=== PATIENT | male | born 1955 | race Caucasian/White ===

== ENCOUNTER 2017-01-08 11:19 | Inpatient (IN) | payer BC, OTHER ==
[2017-01-08 12:58] VITALS: BMI 27.9
--- NOTE | 2017-01-08 14:37 | HP ---
CIWA Score - CIWA Score Nausea/Vomitin-No Nausea/No Vomiting Muscle Tremors: 4-Moderate,w/Arms Extend Anxiety: 3 Agitation: 4-Moderately Restless Paroxysmal Sweats: 3 Orientation: 0-Oriented Tacttile Disturbances: 0-None Auditory Disturbances: 0-None Visual Disturbances: 0-None Headache: 0-None Present CIWA-Ar Total Score: 14 Admission ROS BHS - HPI Chief Complaint: I know I have a problem and need detox. Allergies/Adverse Reactions: Allergies Allergy/AdvReac Type Severity Reaction Status Date / Time No Known Allergies Allergy Verified 01/08/17 14:30 History of Present Illness: pt is a 61yr old male with a history of alcohol dependence seeking detox for treatment. Pt received tx at [facility] ED on 12/31/16 for muscular pain to his left upper chest. cardiac issues.was ruled out. Diagnosis was muscular. Exam Limitations: No Limitations - Ebola screening Have you traveled outside of the country in the last 21 days: No Have you had contact with anyone from an Ebola affected area: No Have you been sick,other than usual withdrawal symptoms: No Do you have a fever: No - Review of Systems Constitutional: Night Sweats, Changes in sleep EENT: reports: Tearing, Nose Congestion Respiratory: reports: Cough Cardiac: reports: Syncope GI: reports: Poor Appetite, Poor Fluid Intake : reports: No Symptoms Reported Musculoskeletal: reports: Joint Pain (right shoulder pain), Muscle Pain (left upper chest wall area.) Integumentary: reports: Flushing, Sweating Neuro: reports: Tingling, Tremors Endocrine: reports: Excessive Sweating, Flushing, Intolerance to Cold, Intolerance to Heat Hematology: reports: No Symptoms Reported, Anemia (h/o anemia in the past. not taking any iron supplement) Psychiatric: reports: Judgement Intact, Mood/Affect Appropiate, Orientated x3, Agitated, Anxious Other Systems: Reviewed and Negative Patient History - Patient Medical History Hx Anemia: Yes (in the past ) Hx Asthma: No Hx Chronic Obstructive Pulmonary Disease (COPD): No Hx Cancer: No Hx Cardiac Disorders: No Hx Congestive Heart Failure: No Hx Hypertension: No Hx Hypercholesterolemia: No Hx Pacemaker: No HX Cerebrovascular Accident: No Hx Seizures: No Hx Dementia: No Hx Diabetes: No Hx Gastrointestinal Disorders: No Hx Liver Disease: No Hx Genitourinary Disorders: No Hx Sexually Transmitted Disorders: No (clymadia/gonerrhea in the past ) Hx Renal Disease (ESRD): No Hx Thyroid Disease: No Hx Human Immunodeficiency Virus (HIV): No (negative) Hx Hepatitis C: No (negative) Hx Depression: No Hx Suicide Attempt: No (denies) Hx Bipolar Disorder: No Hx Schizophrenia: No - Patient Surgical History Hx Orthopedic Surgery: Yes (rt total hip replacement 2000) - PPD History Previous Implant?: Yes Documented Results: Negative w/o proof PPD to be Administered?: Yes - Reproductive History Patient is a Female of Child Bearing Age (11 -55 yrs old): No - Smoking Cessation Smoking history: Current every day smoker Have you smoked in the past 12 months: Yes Aproximately how many cigarettes per day: 2 Hx Chewing Tobacco Use: Yes Initiated information on smoking cessation: Yes 'Breaking Loose' booklet given: 01/08/17 - Substance & Tx. History Hx Alcohol Use: Yes Hx Substance Use: No Substance Use Type: Alcohol Hx Substance Use Treatment: No (never in detox) - Substances Abused Alcohol Route: Oral Frequency: Daily Amount used: 1 six pack beer/1 pint congac /1 pint rum Age of first use: 16 Date of Last Use: 01/08/17 Family Disease History - Family Disease History Family Disease History: Diabetes: Father, [place]: Brother (leukemia) Admission Physical Exam S - Vital Signs Vital Signs: Vital Signs - 24 hr 01/08/17 12:44 Temperature 97 F L Pulse Rate 97 H Respiratory 20 Rate Blood Pressure 117/66 - Physical General Appearance: Yes: Appropriately Dressed, Moderate Distress, Tremorous, Irritable, Sweating, Anxious HEENTM: Yes: Hearing grossly Normal, Normal Voice, Nasal Congestion, Rhinorrhea Respiratory: Yes: Lungs Clear, Normal Breath Sounds, No Respiratory Distress Neck: Yes: No masses,lesions,Nodules Breast: Yes: Within Normal Limits Cardiology: Yes: Regular Rhythm, Regular Rate, S1, S2 Abdominal: Yes: Normal Bowel Sounds, Non Tender, Soft Genitourinary: Yes: Within Normal Limits Back: Yes: Normal Inspection Musculoskeletal: Yes: full range of Motion, Muscle Pain (left upper chest area) Extremities: Yes: Normal Capillary Refill, Normal Inspection, Non-Tender, Tremors Neurological: Yes: Fully Oriented, Alert, Normal Response Integumentary: Yes: Normal Color, Diaphoresis Lymphatic: Yes: Within Normal Limits - Diagnostic (1) Alcohol dependence with uncomplicated withdrawal Current Visit: Yes Status: Chronic (2) Nicotine dependence Current Visit: Yes Status: Chronic Qualifiers: Nicotine product type: cigarettes Substance use status: uncomplicated Qualified Code(s): F17.210 - Nicotine dependence, cigarettes, uncomplicated (3) Hypertension Current Visit: Yes Status: Chronic Qualifiers: Hypertension type: essential hypertension Qualified Code(s): I10 - Essential (primary) hypertension (4) Chest wall muscle strain Current Visit: Yes Status: Acute Qualifiers: Encounter type: initial encounter Qualified Code(s): S29.011A - Strain of muscle and tendon of front wall of thorax, initial encounter Comment: tx received at [facility] 12/31/16 no cardia issue; pt diagnosed with muscular strain Cleared for Admission S - Detox or Rehab [facility] Level of Care: Medically Managed Detox Regimen/Protocol: Librium S Breath Alcohol Content Breath Alcohol Content: 0.204 Urine Drug Screen - Results Drug Screen Negative: No Urine Drug Screen Results: BZO-Benzodiazepines
[2017-01-08] MEDS ORDERED: P-EPHED 60MG/TRIPROLIDI 2.5MG TABLET PO PRN (15:05)
[2017-01-08] MEDS ORDERED: chlordiazePOXIDE HCL 25 MG CAPSULE PO PRN (15:05)
[2017-01-08] MEDS ORDERED: ACETAMINOPHEN 325 MG TABLET (FP) PO PRN (15:05)
[2017-01-08] MEDS ORDERED: guaiFENesin/D-METHORPHAN HB 10 ML UNIT-DOSE CUPS PO PRN (15:05)
[2017-01-08] MEDS ORDERED: MAGNESIUM CITRATE 300 ML BOTTLE PO PRN (15:05)
[2017-01-08] MEDS ORDERED: LOPERAMIDE HCL 2 MG CAPSULE PO PRN (15:05)
[2017-01-08] MEDS ORDERED: hydrOXYzine PAMOATE 50 MG CAPSULE (FP) PO PRN (15:05)
[2017-01-08] MEDS ORDERED: chlordiazePOXIDE HCL 25 MG CAPSULE PO ONE (15:05)
[2017-01-08] MEDS ORDERED: MENTHOL/PHENOL 1 EACH UD MM PRN (15:05)
[2017-01-08] MEDS ORDERED: NICOTINE POLACRILEX 4 MG GUM BC PRN (15:05)
[2017-01-08] MEDS ORDERED: MAG HYDROX/AL HYDROX/SIMETH 30 ML UNIT-DOSE CUP PO PRN (15:05)
[2017-01-08] MEDS ORDERED: MAGNESIUM HYDROX 2400MG/30ML ORAL SUSPENSION 30 ML CUP PO PRN (15:05)
[2017-01-08 17:21] LABS: MCHC 34.6 g/dl (32.0-35.9); MEAN CELL VOLUME 104.1 fl (80-96); MEAN PLT VOLUME 11.2 fl (7.5-11.1); PLATELET COUNT 48 K/MM3 (134-434); RDW 17.5 % (11.9-15.9)
[2017-01-08 17:27] LABS: ALBUMIN 2.1 g/dl (3.4-5.0); BILIRUBIN,TOTAL 2.8 mg/dL (0.2-1.0); SGOT/AST 105 U/L (15-37); SGPT/ALT 42 U/L (12-78)
[2017-01-08 17:30] LABS: ALK PHOS 311 U/L (45-117); ANION GAP 9 (8-16); CALCIUM 8.3 mg/dL (8.5-10.1); CO2 23 mmol/L (21-32); CREATININE 0.8 mg/dL (0.7-1.3); GLUCOSE,RANDOM 164 mg/dL (74-106); TOT PROT 7.2 g/dl (6.4-8.2)
[2017-01-08] MEDS: chlordiazePOXIDE HCL 25 MG CAPSULE PO SCH ×2 (18:11→22:33)
[2017-01-08] MEDS: THIAMINE HCL 100 MG TABLET (FP) PO SCH (22:33)
[2017-01-08] MEDS: diphenhydrAMINE HCL 50 MG CAPSULE PO PRN (22:33)
[2017-01-08 23:23] LABS: MACROCYTOSIS 1+; PLATELET COMMENT2 NO CLOTTING DETECTED; PLATELET COMMENT3 NO CLUMPING NOTED; PLATELET ESTIMATE DECREASED
[2017-01-08 23:24] LABS: ANISOCYTOSIS 1+
[2017-01-09 00:11] LABS: URINE APPEARANCE CLEAR; URINE BILIRUBIN NEGATIVE (NEGATIVE); URINE BLOOD NEGATIVE (NEGATIVE); URINE COLOR STRAW; URINE GLUCOSE (UA) NEGATIVE (NEGATIVE); URINE KETONE NEGATIVE (NEGATIVE); URINE LEUK ESTERASE NEGATIVE (NEGATIVE); URINE NITRITE NEGATIVE (NEGATIVE); URINE PROTEIN NEGATIVE (NEGATIVE); URINE UROBILINOGEN NEGATIVE mg/dL (0.2-1.0)
[2017-01-09] MEDS: chlordiazePOXIDE HCL 25 MG CAPSULE PO SCH ×4 (05:31→22:18)
[2017-01-09 09:34] LABS: HIV 1 & 2 AB NEGATIVE; HIV 1 AGp24 NEGATIVE
--- NOTE | 2017-01-09 10:31 | EKG ---
Test Reason : Blood Pressure : / mmHG Vent. Rate : 073 BPM Atrial Rate : 073 BPM P-R Int : 160 ms QRS Dur : 092 ms QT Int : 414 ms P-R-T Axes : 057 015 036 degrees QTc Int : 456 ms NORMAL SINUS RHYTHM NORMAL ECG NO PREVIOUS ECGS AVAILABLE Confirmed by AGATA SOLER MD ([id number]) on 01/09/2017 10:31:21 AM Referred By: Confirmed By:AGATA SOLER MD
[2017-01-09] MEDS: PRENATAL VITAMINS W/ FOLIC ACID TABLET (FP) PO SCH (10:57)
[2017-01-09] MEDS: METOPROLOL SUCCINATE 100 MG TAB.SR.24H (FP) PO SCH (10:57)
[2017-01-09] MEDS: NICOTINE 7 MG/24 HOURS TOPICAL PATCH TD SCH (11:00)
--- NOTE | 2017-01-09 11:24 | PN ---
S CIWA - CIWA Score Nausea/Vomitin-No Nausea/No Vomiting Muscle Tremors: 4-Moderate,w/Arms Extend Anxiety: 3 Agitation: 4-Moderately Restless Paroxysmal Sweats: 3 Orientation: 0-Oriented Tacttile Disturbances: 0-None Auditory Disturbances: 0-None Visual Disturbances: 0-None Headache: 0-None Present CIWA-Ar Total Score: 14 BHS Progress Note (SOAP) Subjective: sweats tired agitation interrupted sleep body aches Objective: 01/09/17 11:23 Vital Signs Temperature 98.1 F 01/09/17 10:00 Pulse Rate 88 01/09/17 10:00 Respiratory Rate 18 01/09/17 10:00 Blood Pressure 135/73 01/09/17 10:00 O2 Sat by Pulse Oximetry (%) Laboratory Tests 01/08/17 01/08/17 01/08/17 14:00 14:00 14:00 WBC 4.0 RBC 2.84 L Hgb 10.2 L Hct 29.5 L MCV 104.1 H MCH 36.0 H MCHC 34.6 RDW 17.5 H Plt Count 48 L MPV 11.2 H Platelet Estimate Decreased Platelet Comment No clotting detected Anisocytosis 1+ Macrocytosis 1+ Sodium Potassium Chloride Carbon Dioxide Anion Gap BUN Creatinine Creat Clearance w eGFR Random Glucose Calcium Total Bilirubin AST ALT Alkaline Phosphatase Total Protein Albumin Urine Color Urine Appearance Urine pH Urine Protein Urine Glucose (UA) Urine Ketones Urine Blood Urine Nitrite Urine Bilirubin Urine Urobilinogen Ur Leukocyte Esterase RPR Titer Nonreactive HIV 1&2 Antibody Screen Negative HIV P24 Antigen Negative 01/08/17 01/08/17 14:00 23:56 WBC RBC Hgb Hct MCV MCH MCHC RDW Plt Count MPV Platelet Estimate Platelet Comment Anisocytosis Macrocytosis Sodium 144 Potassium 4.4 Chloride 112 H Carbon Dioxide 23 Anion Gap 9 BUN 10 Creatinine 0.8 Creat Clearance w eGFR > 60 Random Glucose 164 H Calcium 8.3 L Total Bilirubin 2.8 H AST 105 H ALT 42 Alkaline Phosphatase 311 H Total Protein 7.2 Albumin 2.1 L Urine Color Straw Urine Appearance Clear Urine pH 6.0 Urine Protein Negative Urine Glucose (UA) Negative Urine Ketones Negative Urine Blood Negative Urine Nitrite Negative Urine Bilirubin Negative Urine Urobilinogen Negative Ur Leukocyte Esterase Negative RPR Titer HIV 1&2 Antibody Screen HIV P24 Antigen low H:H; iron supplement ordered awake/alert ambulating no acute distress Assessment: 01/09/17 11:23 withdrawal sx Plan: continue detox increase fluids iron supplement ordered repeat labs for thursday.
[2017-01-09] MEDS: FERROUS SO4 325 MG TABLET (FP) PO SCH ×2 (13:00→18:35)
--- NOTE | 2017-01-09 14:08 | CONSULT ---
[facility] Psychiatric Consult - Data Date of interview: 01/09/17 Admission source: [facility] Identifying data: First admission to [facility] for this 61 y/o male seeking detox treatment on for alcohol and marihuana dependence.Patient is in a long standing common-law relationship,father of seven,domiciled and currently retired (supported on his pension benefits). Substance Abuse History: Discussed with patient in this interview.Mr Price declares that this report is accurate about his addictions. Smoking Cessation. Smoking history: Current every day smoker. Have you smoked in the past 12 months: Yes. Aproximately how many cigarettes per day: 2. Hx Chewing Tobacco Use: Yes. Initiated information on smoking cessation: Yes. 'Breaking Loose' booklet given: 01/08/17. - Substance & Tx. History. Hx Alcohol Use: Yes. Hx Substance Use: No. Substance Use Type: Alcohol. Hx Substance Use Treatment: No (never in detox). - Substances Abused. Alcohol. Route: Oral. Frequency : Daily. Amount used: 1 six pack beer/1 pint congac /1 pint rum. Age of first use: 16. Date of Last Use: 01/08/17 Medical History: Remarkable for hepatitis C,history of anemia,past treatment for chlamydia/gonorrhea and total right hip replacement (2000). Psychiatric History: Patient denies. Physical/Sexual Abuse/Trauma History: Patient denies. Additional Comment: Urine Drug Screen Results: BZO-Benzodiazepines.Noted. Mental Status Exam - Mental Status Exam Alert and Oriented to: Time, Place, Person Cognitive Function: Good Patient Appearance: Well Groomed Mood: Nervous, Withdrawn, Anxious Affect: Mood Congruent Patient Behavior: Fatigued, Appropriate, Cooperative Speech Pattern: Clear, Appropriate Voice Loudness: Normal Thought Process: Intact, Goal Oriented Thought Disorder: Not Present Hallucinations: Denies Suicidal Ideation: Denies Homicidal Ideation: Denies Insight/Judgement: Poor Sleep: Poorly, Difficulty falling asleep Appetite: Good Muscle strength/Tone: Normal Gait/Station: Normal Psychiatric Findings - Problem List ([place] 1, 2,3) (1) Alcohol dependence with uncomplicated withdrawal Current Visit: Yes Status: Acute (2) Nicotine dependence Current Visit: Yes Status: Acute Qualifiers: Nicotine product type: cigarettes Substance use status: uncomplicated Qualified Code(s): F17.210 - Nicotine dependence, cigarettes, uncomplicated (3) Chest wall muscle strain Current Visit: Yes Status: Acute Qualifiers: Encounter type: initial encounter Qualified Code(s): S29.011A - Strain of muscle and tendon of front wall of thorax, initial encounter Comment: tx received at [facility] 12/31/16 no cardia issue; pt diagnosed with muscular strain (4) Hypertension Current Visit: Yes Status: Chronic Qualifiers: Hypertension type: essential hypertension Qualified Code(s): I10 - Essential (primary) hypertension (5) Insomnia Current Visit: Yes Status: Acute - Initial Treatment Plan Initial Treatment Plan: Psychoeducation.Detoxification.Ambien 5 mg po hs prn.Patient is made aware of potential for parasomnias.He is in agreement with this careplan.Observation.
[2017-01-09] MEDS: ZOLPIDEM TARTRATE 5 MG TABLET PO PRN (22:18)
[2017-01-09] MEDS: THIAMINE HCL 100 MG TABLET (FP) PO SCH (22:18)
[2017-01-10] MEDS: chlordiazePOXIDE HCL 25 MG CAPSULE PO SCH ×2 (05:48→10:11)
[2017-01-10] MEDS: FERROUS SO4 325 MG TABLET (FP) PO SCH ×3 (07:37→17:55)
[2017-01-10] MEDS: NICOTINE 7 MG/24 HOURS TOPICAL PATCH TD SCH (10:11)
[2017-01-10] MEDS: PRENATAL VITAMINS W/ FOLIC ACID TABLET (FP) PO SCH (10:11)
[2017-01-10] MEDS: METOPROLOL SUCCINATE 100 MG TAB.SR.24H (FP) PO SCH (10:11)
--- NOTE | 2017-01-10 13:51 | PN ---
[facility] CIWA - CIWA Score Nausea/Vomitin Muscle Tremors: 3 Anxiety: 3 Agitation: 2 Paroxysmal Sweats: 1-Minimal Palms Moist Orientation: 0-Oriented Tacttile Disturbances: 1-Very Mild Itch/Numbness Auditory Disturbances: 1-Very Mild Visual Disturbances: 1-Very Mild Sensitivity Headache: 2-Mild CIWA-Ar Total Score: 17 S Progress Note (SOAP) Subjective: alert,irritable,anxious,interrupted sleep,tremor Objective: 01/10/17 13:49 Vital Signs Temperature 98.1 F 01/10/17 09:56 Pulse Rate 90 01/10/17 09:56 Respiratory Rate 16 01/10/17 09:56 Blood Pressure 117/79 01/10/17 09:56 O2 Sat by Pulse Oximetry (%) ekg nsr,normal ecg 01/10/17 13:50 Laboratory Last Values WBC 4.0 K/mm3 (4.0-10.0) 01/08/17 14:00 RBC 2.84 M/mm3 (4.00-5.60) L 01/08/17 14:00 Hgb 10.2 GM/dL (11.7-16.9) L 01/08/17 14:00 Hct 29.5 % (35.4-49) L 01/08/17 14:00 MCV 104.1 fl (80-96) H 01/08/17 14:00 MCH 36.0 pg (25.7-33.7) H 01/08/17 14:00 MCHC 34.6 g/dl (32.0-35.9) 01/08/17 14:00 RDW 17.5 % (11.9-15.9) H 01/08/17 14:00 Plt Count 48 K/MM3 (134-434) L 01/08/17 14:00 MPV 11.2 fl (7.5-11.1) H 01/08/17 14:00 Platelet Estimate Decreased 01/08/17 14:00 Platelet Comment Few large plts 01/08/17 14:00 Platelet Comment No clotting detected 01/08/17 14:00 Anisocytosis 1+ 01/08/17 14:00 Macrocytosis 1+ 01/08/17 14:00 Sodium 144 mmol/L (136-145) 01/08/17 14:00 Potassium 4.4 mmol/L (3.5-5.1) 01/08/17 14:00 Chloride 112 mmol/L (98-107) H 01/08/17 14:00 Carbon Dioxide 23 mmol/L (21-32) 01/08/17 14:00 Anion Gap 9 (8-16) 01/08/17 14:00 BUN 10 mg/dL (7-18) 01/08/17 14:00 Creatinine 0.8 mg/dL (0.7-1.3) 01/08/17 14:00 Creat Clearance w eGFR > 60 (>60) 01/08/17 14:00 Random Glucose 164 mg/dL (74-106) H 01/08/17 14:00 Calcium 8.3 mg/dL (8.5-10.1) L 01/08/17 14:00 Total Bilirubin 2.8 mg/dL (0.2-1.0) H 01/08/17 14:00 AST 105 U/L (15-37) H 01/08/17 14:00 ALT 42 U/L (12-78) 01/08/17 14:00 Alkaline Phosphatase 311 U/L (45-117) H 01/08/17 14:00 Total Protein 7.2 g/dl (6.4-8.2) 01/08/17 14:00 Albumin 2.1 g/dl (3.4-5.0) L 01/08/17 14:00 Urine Color Straw 01/08/17 23:56 Urine Appearance Clear 01/08/17 23:56 Urine pH 6.0 (5.0-8.0) 01/08/17 23:56 Ur Specific [place] <= 1.005 (1.005-1.025) 01/08/17 23:56 Urine Protein Negative (NEGATIVE) 01/08/17 23:56 Urine Glucose (UA) Negative (NEGATIVE) 01/08/17 23:56 Urine Ketones Negative (NEGATIVE) 01/08/17 23:56 Urine Blood Negative (NEGATIVE) 01/08/17 23:56 Urine Nitrite Negative (NEGATIVE) 01/08/17 23:56 Urine Bilirubin Negative (NEGATIVE) 01/08/17 23:56 Urine Urobilinogen Negative mg/dL (0.2-1.0) 01/08/17 23:56 Ur Leukocyte Esterase Negative (NEGATIVE) 01/08/17 23:56 RPR Titer Nonreactive (NONREACTIVE) 01/08/17 14:00 HIV 1&2 Antibody Screen Negative 01/08/17 14:00 HIV P24 Antigen Negative 01/08/17 14:00 Assessment: 01/10/17 13:52 withdrawal symptom Plan: continue detox,repeat cbc,cmp,inr in am
[2017-01-10] MEDS: CYCLOBENZAPRINE HCL 10 MG TABLET (FP) PO SCH ×2 (14:41→22:11)
[2017-01-10] MEDS: chlordiazePOXIDE 5 MG CAPSULE PO SCH ×2 (17:55→22:11)
[2017-01-10] MEDS: THIAMINE HCL 100 MG TABLET (FP) PO SCH (22:10)
[2017-01-10] MEDS: ZOLPIDEM TARTRATE 5 MG TABLET PO PRN (22:10)
[2017-01-11] MEDS: chlordiazePOXIDE 5 MG CAPSULE PO SCH ×2 (05:57→10:21)
[2017-01-11] MEDS: CYCLOBENZAPRINE HCL 10 MG TABLET (FP) PO SCH ×3 (06:58→22:09)
[2017-01-11] MEDS: FERROUS SO4 325 MG TABLET (FP) PO SCH ×3 (07:10→17:17)
[2017-01-11] MEDS: PRENATAL VITAMINS W/ FOLIC ACID TABLET (FP) PO SCH (10:21)
[2017-01-11] MEDS: NICOTINE 7 MG/24 HOURS TOPICAL PATCH TD SCH (10:21)
[2017-01-11] MEDS: METOPROLOL SUCCINATE 100 MG TAB.SR.24H (FP) PO SCH (10:21)
[2017-01-11 10:23] LABS: WHITE BLOOD COUNT 3.3 K/mm3 (4.0-10.0)
[2017-01-11 10:38] LABS: PLATELET COUNT 42 K/MM3 (134-434)
[2017-01-11 10:41] LABS: MCHC 34.5 g/dl (32.0-35.9); MEAN CELL VOLUME 104.4 fl (80-96); MEAN PLT VOLUME 11.4 fl (7.5-11.1); RDW 16.4 % (11.9-15.9)
[2017-01-11 11:02] LABS: ALBUMIN 1.9 g/dl (3.4-5.0); ANION GAP 7 (8-16); BILIRUBIN,TOTAL 3.9 mg/dL (0.2-1.0); CALCIUM 8.3 mg/dL (8.5-10.1); CO2 27 mmol/L (21-32); CREATININE 0.7 mg/dL (0.7-1.3); GLUCOSE,RANDOM 94 mg/dL (74-106); SGOT/AST 77 U/L (15-37); SGPT/ALT 33 U/L (12-78); TOT PROT 6.5 g/dl (6.4-8.2)
[2017-01-11 11:03] LABS: ALK PHOS 220 U/L (45-117)
[2017-01-11 11:08] LABS: PLATELET ESTIMATE DECREASED; TOTAL CELLS COUNTED 100
[2017-01-11] MEDS: LACTULOSE 20 GM/30 ML UDC (FOR ORAL USE ONLY) PO SCH ×2 (11:13→22:08)
--- NOTE | 2017-01-11 14:01 | PN ---
S Progress Note (SOAP) Subjective: ALERT,IRRITABLE,ANXIOUS,INTERRUPTED SLEEP, Objective: 01/11/17 13:59 Vital Signs Temperature 97.9 F 01/11/17 10:44 Pulse Rate 73 01/11/17 10:44 Respiratory Rate 01/11/17 10:44 Blood Pressure 103/66 01/11/17 10:44 O2 Sat by Pulse Oximetry (%) Abnormal Lab Results 01/10/17 01/11/17 01/11/17 16:40 07:45 07:45 WBC 3.3 L RBC 2.83 L Hgb 10.2 L Hct 29.5 L MCV 104.4 H MCH 36.0 H RDW 16.4 H Plt Count 42 L MPV 11.4 H Monocytes % (Manual) 11 H Anion Gap 7 L Calcium 8.3 L Total Bilirubin 3.9 H D AST 77 H D Alkaline Phosphatase 220 H D Ammonia 51.05 H Albumin 1.9 L Assessment: 01/11/17 13:59 CONTINUE DETOX Plan: CONTINUE DETOX,LACTULOSE 20 GRAMS PO BID,DISCHARGE IN AM
[2017-01-11] MEDS: chlordiazePOXIDE HCL 10 MG CAPSULE PO SCH ×2 (17:18→22:10)
[2017-01-11] MEDS: diphenhydrAMINE HCL 50 MG CAPSULE PO PRN (22:07)
[2017-01-11] MEDS: THIAMINE HCL 100 MG TABLET (FP) PO SCH (22:07)
[2017-01-12] MEDS: FERROUS SO4 325 MG TABLET (FP) PO SCH (07:19)
[2017-01-12] MEDS: chlordiazePOXIDE HCL 10 MG CAPSULE PO SCH (07:19)
[2017-01-12] MEDS: CYCLOBENZAPRINE HCL 10 MG TABLET (FP) PO SCH (07:19)
[2017-01-12] MEDS: METOPROLOL SUCCINATE 100 MG TAB.SR.24H (FP) PO SCH (09:20)
[2017-01-12] MEDS: PRENATAL VITAMINS W/ FOLIC ACID TABLET (FP) PO SCH (09:20)
[2017-01-12] MEDS: LACTULOSE 20 GM/30 ML UDC (FOR ORAL USE ONLY) PO SCH (09:22)
[2017-01-12] MEDS: NICOTINE 7 MG/24 HOURS TOPICAL PATCH TD SCH (09:22)
--- NOTE | 2017-01-12 09:27 | DS ---
[facility] Detox Discharge Summary Admission Date: 01/08/17 Discharge Date: 01/12/17 - History Present History: Alcohol Dependence - Physical Exam Results Vital Signs: Vital Signs Temperature 96.4 F L 01/12/17 06:52 Pulse Rate 64 01/12/17 06:52 Respiratory Rate 16 01/12/17 06:52 Blood Pressure 100/50 01/12/17 06:52 O2 Sat by Pulse Oximetry (%) - Treatment Hospital Course: Detox Protocol Followed, Detoxed Safely, Responded well, Discharged Condition Good, Rehab Referral Accepted - Medication Discharge Medications: Ambulatory Orders Metoprolol Succinate [Toprol XL -] 100 mg PO DAILY 01/08/17 Ferrous Sulfate [Feosol] 325 mg PO TIDCM #90 mg 01/12/17 Lactulose (Oral Use) [Cephulac -] 20 gm PO BID #1 bottle 01/12/17 - Diagnosis (1) Alcohol dependence with uncomplicated withdrawal Current Visit: Yes Status: Chronic (2) Nicotine dependence Current Visit: Yes Status: Chronic Qualifiers: Nicotine product type: cigarettes Substance use status: uncomplicated Qualified Code(s): F17.210 - Nicotine dependence, cigarettes, uncomplicated (3) Hypertension Current Visit: Yes Status: Chronic Qualifiers: Hypertension type: essential hypertension Qualified Code(s): I10 - Essential (primary) hypertension (4) Chest wall muscle strain Current Visit: Yes Status: Acute Qualifiers: Encounter type: initial encounter Qualified Code(s): S29.011A - Strain of muscle and tendon of front wall of thorax, initial encounter - AMA Did Patient Leave Against Medical Advice: No
[2017-01-12 10:42] VITALS: BP 94/51; PULSE 61; TEMP 97.2
== END 2017-01-12 12:29 | disposition home or self-care (01) | DRG 897 ==
LOC: YASAS 11:19 → Y6N 16:20
PROVIDERS: ADMIT Internal Medicine; ATTEND Internal Medicine
PROC: HZ2ZZZZ Detoxification Services for Substance Abuse Treatment (ICD-10-PCS; principal; 2017-01-08)
DX: F10.230 Alcohol dependence with withdrawal, uncomplicated (principal); F17.210 Nicotine dependence, cigarettes, uncomplicated; I10 Essential (primary) hypertension; G47.00 Insomnia, unspecified; Z87.438 Personal history of other diseases of male genital organs; Z86.2 Personal history of diseases of the blood and blood-forming organs and certain disorders involving the immune mechanism; Z96.641 Presence of right artificial hip joint; S29.011D Strain of muscle and tendon of front wall of thorax, subsequent encounter; X58.XXXD Exposure to other specified factors, subsequent encounter
CPT/HCPCS: 36415; 80053; 81003; 82140; 85025; 85027; 86593; 87389; 93005; 93010

== ENCOUNTER 2017-01-12 12:39 | Inpatient (IN) | payer BC, OTHER ==
[2017-01-12 13:07] VITALS: BMI 28.0
[2017-01-12] MEDS ORDERED: PNEUMOC 13-VAL CONJ-DIP CRM/PF 0.5 ML DISP.SYRIN IM ONE (13:25)
[2017-01-12] MEDS ORDERED: MENTHOL/PHENOL 1 EACH UD MM PRN (15:28)
[2017-01-12] MEDS ORDERED: ACETAMINOPHEN 325 MG TABLET (FP) PO PRN (15:28)
[2017-01-12] MEDS ORDERED: MAGNESIUM CITRATE 300 ML BOTTLE PO PRN (15:28)
[2017-01-12] MEDS ORDERED: LOPERAMIDE HCL 2 MG CAPSULE PO PRN (15:28)
[2017-01-12] MEDS ORDERED: MAGNESIUM HYDROX 2400MG/30ML ORAL SUSPENSION 30 ML CUP PO PRN (15:28)
[2017-01-12] MEDS ORDERED: guaiFENesin/D-METHORPHAN HB 10 ML UNIT-DOSE CUPS PO PRN (15:28)
[2017-01-12] MEDS ORDERED: hydrOXYzine PAMOATE 25 MG CAPSULE (FP) PO PRN (15:28)
[2017-01-12] MEDS ORDERED: MAG HYDROX/AL HYDROX/SIMETH 30 ML UNIT-DOSE CUP PO PRN (15:28)
[2017-01-12] MEDS ORDERED: P-EPHED 60MG/TRIPROLIDI 2.5MG TABLET PO PRN (15:28)
--- NOTE | 2017-01-12 15:40 | HP ---
[facility] Re[facility] Assess/Revision - Admission History Admitted to Rehab from: [facility] [place] Date of Admission to Rehab: 01/12/17 - Vital signs Vital Signs: Vital Signs Period Temp Pulse Resp BP Sys/Villaseñor Pulse Ox Last 24 Hr 97.6 F 59 20 148/62 - Findings Detox History & Physical reviewed: Yes Concur with findings: Yes Comments/Additional Findings: for rehab as protocol
[2017-01-12] MEDS ORDERED: FUROSEMIDE 40 MG TABLET (FP) PO SCH (16:00)
[2017-01-12] MEDS: FERROUS SO4 325 MG TABLET (FP) PO SCH (16:56)
[2017-01-12] MEDS: FUROSEMIDE 40 MG TABLET (FP) PO SCH (16:56)
[2017-01-12] MEDS: LACTULOSE 20 GM/30 ML UDC (FOR ORAL USE ONLY) PO SCH (21:26)
[2017-01-12] MEDS: THIAMINE HCL 100 MG TABLET (FP) PO SCH (21:27)
[2017-01-13] MEDS: IBUPROFEN 400 MG TABLET (FP) PO PRN (00:58)
[2017-01-13] MEDS: CYCLOBENZAPRINE HCL 10 MG TABLET (FP) PO PRN (01:01)
[2017-01-13] MEDS: diphenhydrAMINE HCL 50 MG CAPSULE PO PRN ×2 (01:04→21:46)
[2017-01-13] MEDS: FERROUS SO4 325 MG TABLET (FP) PO SCH ×3 (07:03→17:17)
[2017-01-13] MEDS: PRENATAL VITAMINS W/ FOLIC ACID TABLET (FP) PO SCH (09:44)
[2017-01-13] MEDS: LACTULOSE 20 GM/30 ML UDC (FOR ORAL USE ONLY) PO SCH ×2 (09:44→21:45)
[2017-01-13] MEDS: FUROSEMIDE 40 MG TABLET (FP) PO SCH (09:45)
[2017-01-13] MEDS: METOPROLOL SUCCINATE 100 MG TAB.SR.24H (FP) PO SCH (09:46)
--- NOTE | 2017-01-13 10:48 | HP ---
Psychiatrist Admission - Data Date of interview: 01/13/17 Admission source: 6N Identifying data: This is the first 3W inpatient rehabilitation admission for this 61 year old male, father of 7, residing in [facility]. Patient is in a long standing common-law relationship and currently retired ( supported on his pension benefits) Medical History: Remarkable for hepatitis C,history of anemia,past treatment for chlamydia/gonorrhea and total right hip replacement (2000). Smokes 2 cigaretets a day. Psychiatric History: Patient denies history of psychiatric treatment. Physical/Sexual Abuse/Trauma History: Patient denies history of abuse. Vital Signs: Vital Signs - 24 hr 01/12/17 01/12/17 01/13/17 13:06 16:00 03:30 Temperature 97.6 F Pulse Rate 59 L 57 L Respiratory 20 20 Rate Blood Pressure 148/62 101/58 01/13/17 06:58 Temperature 97.7 F Pulse Rate 64 Respiratory 18 Rate Blood Pressure 94/62 Allergies/Adverse Reactions: Allergies Allergy/AdvReac Type Severity Reaction Status Date / Time No Known Allergies Allergy Verified 01/08/17 14:30 Date of last physical exam: 01/08/17 Concur with the findings of this exam: Yes - Substance Abuse/Tx History Hx Alcohol Use: Yes Hx Substance Use: No Substance Use Type: Alcohol (1 six pack beer/1 pint congac /1 pint rum. Age of first use - 16) Hx Substance Use Treatment: No (this is his first rehab.) - Admission Criteria Previous failed treatment: No Poor recovery environment: Yes Comorbidities: No Lacks judgement: Yes Mental Status Exam - Mental Status Exam Alert and Oriented to: Time, Place, Person Cognitive Function: Grossly Intact Patient Appearance: Well Groomed Mood: Sad Affect: Appropriate, Mood Congruent Patient Behavior: Appropriate, Cooperative Speech Pattern: Appropriate Voice Loudness: Normal Thought Process: Goal Oriented Thought Disorder: Not Present Hallucinations: Denies Suicidal Ideation: Denies Homicidal Ideation: Denies Insight/Judgement: Fair Sleep: Fair Appetite: Fair Muscle strength/Tone: Normal Gait/Station: Normal Psychiatric Findings - Problem List ([place] 1, 2,3) (1) Hypertension Current Visit: No Status: Chronic Qualifiers: (2) Nicotine dependence Current Visit: No Status: Chronic Qualifiers: (3) Alcohol dependence Current Visit: Yes Status: Acute - Initial Treatment Plan Initial Treatment Plan: will monitor rpogress as needed.
[2017-01-13] MEDS ORDERED: PNEUMOCOCCAL 23 VACCINE 0.5 ML VIAL IM ONE (12:00)
[2017-01-13] MEDS: THIAMINE HCL 100 MG TABLET (FP) PO SCH (21:44)
[2017-01-14] MEDS: FERROUS SO4 325 MG TABLET (FP) PO SCH ×3 (07:29→17:04)
[2017-01-14] MEDS ORDERED: PT OWN MED DRAWER 7, Y5N ONE (08:44)
[2017-01-14] MEDS: FUROSEMIDE 40 MG TABLET (FP) PO SCH (09:45)
[2017-01-14] MEDS: PRENATAL VITAMINS W/ FOLIC ACID TABLET (FP) PO SCH (09:45)
[2017-01-14] MEDS: LACTULOSE 20 GM/30 ML UDC (FOR ORAL USE ONLY) PO SCH ×2 (09:45→23:50)
[2017-01-14] MEDS: METOPROLOL SUCCINATE 100 MG TAB.SR.24H (FP) PO SCH (11:19)
[2017-01-14] MEDS: THIAMINE HCL 100 MG TABLET (FP) PO SCH (23:50)
[2017-01-15] MEDS: FERROUS SO4 325 MG TABLET (FP) PO SCH ×3 (07:17→16:39)
[2017-01-15] MEDS: PRENATAL VITAMINS W/ FOLIC ACID TABLET (FP) PO SCH (09:38)
[2017-01-15] MEDS: METOPROLOL SUCCINATE 100 MG TAB.SR.24H (FP) PO SCH (09:38)
[2017-01-15] MEDS: LACTULOSE 20 GM/30 ML UDC (FOR ORAL USE ONLY) PO SCH ×2 (09:38→21:53)
--- NOTE | 2017-01-15 12:35 | PN ---
BHS Progress Note Note: hemorrhoids contact dermatitis on face treatment anusol cream 2.5% lidex ointment 0.5% bid
[2017-01-15] MEDS: FLUOCINONIDE 0.05% TOP OINT (60 GM TUBE) TP SCH ×2 (13:48→21:52)
[2017-01-15] MEDS: HYDROCORTISONE 2.5% TOPICAL CREAM 30 GM TUBE TP SCH (13:48)
[2017-01-15] MEDS: diphenhydrAMINE HCL 50 MG CAPSULE PO PRN (21:53)
[2017-01-15] MEDS: THIAMINE HCL 100 MG TABLET (FP) PO SCH (21:53)
[2017-01-15] MEDS: IBUPROFEN 400 MG TABLET (FP) PO PRN (21:54)
[2017-01-16] MEDS: FERROUS SO4 325 MG TABLET (FP) PO SCH ×3 (07:01→16:56)
[2017-01-16] MEDS: METOPROLOL SUCCINATE 100 MG TAB.SR.24H (FP) PO SCH (09:41)
[2017-01-16] MEDS: LACTULOSE 20 GM/30 ML UDC (FOR ORAL USE ONLY) PO SCH ×2 (09:41→21:45)
[2017-01-16] MEDS: PRENATAL VITAMINS W/ FOLIC ACID TABLET (FP) PO SCH (09:41)
[2017-01-16] MEDS: HYDROCORTISONE 2.5% TOPICAL CREAM 30 GM TUBE TP SCH (09:42)
[2017-01-16] MEDS: FLUOCINONIDE 0.05% TOP OINT (60 GM TUBE) TP SCH ×2 (09:42→21:45)
[2017-01-16] MEDS: diphenhydrAMINE HCL 50 MG CAPSULE PO PRN (21:45)
[2017-01-16] MEDS: THIAMINE HCL 100 MG TABLET (FP) PO SCH (21:45)
[2017-01-17] MEDS: FERROUS SO4 325 MG TABLET (FP) PO SCH ×3 (07:04→17:58)
[2017-01-17] MEDS: PRENATAL VITAMINS W/ FOLIC ACID TABLET (FP) PO SCH (09:22)
[2017-01-17] MEDS: METOPROLOL SUCCINATE 100 MG TAB.SR.24H (FP) PO SCH (09:22)
[2017-01-17] MEDS: LACTULOSE 20 GM/30 ML UDC (FOR ORAL USE ONLY) PO SCH ×2 (09:22→21:42)
[2017-01-17] MEDS: HYDROCORTISONE 2.5% TOPICAL CREAM 30 GM TUBE TP SCH (09:23)
[2017-01-17] MEDS: FLUOCINONIDE 0.05% TOP OINT (60 GM TUBE) TP SCH ×2 (09:23→21:42)
[2017-01-17] MEDS: CYCLOBENZAPRINE HCL 10 MG TABLET (FP) PO PRN (15:41)
[2017-01-17] MEDS: THIAMINE HCL 100 MG TABLET (FP) PO SCH (21:42)
[2017-01-18] MEDS: FERROUS SO4 325 MG TABLET (FP) PO SCH ×3 (07:16→18:30)
[2017-01-18] MEDS: PRENATAL VITAMINS W/ FOLIC ACID TABLET (FP) PO SCH (09:26)
[2017-01-18] MEDS: METOPROLOL SUCCINATE 100 MG TAB.SR.24H (FP) PO SCH (09:26)
[2017-01-18] MEDS: LACTULOSE 20 GM/30 ML UDC (FOR ORAL USE ONLY) PO SCH ×2 (09:27→22:05)
[2017-01-18] MEDS: HYDROCORTISONE 2.5% TOPICAL CREAM 30 GM TUBE TP SCH (09:28)
[2017-01-18] MEDS: FLUOCINONIDE 0.05% TOP OINT (60 GM TUBE) TP SCH ×2 (09:28→22:39)
[2017-01-18] MEDS: diphenhydrAMINE HCL 50 MG CAPSULE PO PRN (22:05)
[2017-01-18] MEDS: THIAMINE HCL 100 MG TABLET (FP) PO SCH (22:05)
[2017-01-19] MEDS: diphenhydrAMINE HCL 50 MG CAPSULE PO PRN ×3 (01:00→23:52)
[2017-01-19] MEDS: FERROUS SO4 325 MG TABLET (FP) PO SCH ×3 (07:18→17:30)
[2017-01-19] MEDS: METOPROLOL SUCCINATE 100 MG TAB.SR.24H (FP) PO SCH (09:53)
[2017-01-19] MEDS: FLUOCINONIDE 0.05% TOP OINT (60 GM TUBE) TP SCH ×2 (09:53→22:02)
[2017-01-19] MEDS: PRENATAL VITAMINS W/ FOLIC ACID TABLET (FP) PO SCH (09:53)
[2017-01-19] MEDS: LACTULOSE 20 GM/30 ML UDC (FOR ORAL USE ONLY) PO SCH ×2 (09:53→22:01)
[2017-01-19] MEDS: HYDROCORTISONE 2.5% TOPICAL CREAM 30 GM TUBE TP SCH (10:17)
[2017-01-19] MEDS ORDERED: CYCLOBENZAPRINE HCL 10 MG TABLET (FP) PO PRN (13:44)
--- NOTE | 2017-01-19 13:51 | PN ---
BHS Progress Note Note: pain in left chest wall,reach out to vegetable picker object on the floor prior comning for detox pain related to movement with pain on palpation lung clear no wheezing impression muscle strain motrin 400 mgs po q 6 hrs prn for pain flexeril 10 mgs tid prn
[2017-01-19] MEDS: THIAMINE HCL 100 MG TABLET (FP) PO SCH (22:01)
[2017-01-20] MEDS: FERROUS SO4 325 MG TABLET (FP) PO SCH ×3 (07:10→17:04)
[2017-01-20] MEDS: FLUOCINONIDE 0.05% TOP OINT (60 GM TUBE) TP SCH ×2 (10:06→21:39)
[2017-01-20] MEDS: METOPROLOL SUCCINATE 100 MG TAB.SR.24H (FP) PO SCH (10:06)
[2017-01-20] MEDS: PRENATAL VITAMINS W/ FOLIC ACID TABLET (FP) PO SCH (10:06)
[2017-01-20] MEDS: LACTULOSE 20 GM/30 ML UDC (FOR ORAL USE ONLY) PO SCH ×2 (10:06→21:39)
[2017-01-20] MEDS: HYDROCORTISONE 2.5% TOPICAL CREAM 30 GM TUBE TP SCH (10:07)
[2017-01-20 16:03] LABS: ALBUMIN 2.3 g/dl (3.4-5.0); ANION GAP 7 (8-16); CALCIUM 9.1 mg/dL (8.5-10.1); CO2 27 mmol/L (21-32); CREATININE 0.8 mg/dL (0.7-1.3); GLUCOSE,RANDOM 104 mg/dL (74-106); SGOT/AST 94 U/L (15-37); SGPT/ALT 53 U/L (12-78)
[2017-01-20 16:04] LABS: ALK PHOS 211 U/L (45-117); BILIRUBIN,TOTAL 3.9 mg/dL (0.2-1.0); TOT PROT 7.8 g/dl (6.4-8.2)
[2017-01-20] MEDS: diphenhydrAMINE HCL 50 MG CAPSULE PO PRN (21:39)
[2017-01-20] MEDS: THIAMINE HCL 100 MG TABLET (FP) PO SCH (21:39)
[2017-01-21] MEDS: FERROUS SO4 325 MG TABLET (FP) PO SCH ×3 (07:06→16:44)
[2017-01-21] MEDS: PRENATAL VITAMINS W/ FOLIC ACID TABLET (FP) PO SCH (09:51)
[2017-01-21] MEDS: METOPROLOL SUCCINATE 100 MG TAB.SR.24H (FP) PO SCH (09:51)
[2017-01-21] MEDS: HYDROCORTISONE 2.5% TOPICAL CREAM 30 GM TUBE TP SCH (09:51)
[2017-01-21] MEDS: FLUOCINONIDE 0.05% TOP OINT (60 GM TUBE) TP SCH ×2 (09:51→21:30)
[2017-01-21] MEDS: LACTULOSE 20 GM/30 ML UDC (FOR ORAL USE ONLY) PO SCH ×2 (09:51→21:27)
[2017-01-21 10:38] VITALS: PULSE 56
--- NOTE | 2017-01-21 16:39 | PN ---
Psychiatric Progress Note Vital Signs: Vital Signs Period Temp Pulse Resp BP Sys/Villaseñor Pulse Ox Last 24 Hr 97.4 F 56-60 16-20 112-133/59-68 Date of Session: 01/21/17 Chief Complaint:: Discharge visit HPI: Patient addressed Alcohol dependence with no psychiatric comorbidity. ROS: Significant for HTN. Current Medications: Active Medications Generic Name Dose Route Start Last Admin Trade Name Freq PRN Reason Stop Dose Admin Al Hydroxide/Mg Hydroxide 30 ml 01/12/17 15:28 Mylanta Oral Suspension - PO Q6H PRN DYSPEPSIA Cyclobenzaprine HCl 10 mg 01/19/17 13:44 01/19/17 22:03 Flexeril - PO 10 mg TID PRN Administration MUSCLE SPASMS Diphenhydramine HCl 50 mg 01/12/17 15:28 01/20/17 21:39 Benadryl - PO 50 mg HSMR1 PRN Administration FOR ITCHING Docusate Sodium 300 mg 01/21/17 22:00 Colace - PO HS JOE Eucalyptus/Menthol/Phenol/Sorbitol 1 each 01/12/17 15:28 Cepastat Lozenge - MM Q4H PRN SORE THROAT Ferrous Sulfate 325 mg 01/12/17 17:30 01/21/17 13:00 Feosol - PO 325 mg TIDCM JOE Administration Fluocinonide 1 applic 01/15/17 13:00 01/21/17 09:51 Lidex 0.05% Ointment - TP 1 applic BID JOE Administration Guaifenesin 10 ml 01/12/17 15:28 Robitussin Dm - PO Q6H PRN COUGH Hydrocortisone 1 applic 01/15/17 13:00 01/21/17 09:51 Anusol 2.5% Hc Cream - TP 1 applic DAILY JOE Administration Hydroxyzine Pamoate 25 mg 01/12/17 15:28 01/20/17 01:15 Vistaril - PO 25 mg Q4H PRN Administration AGITATION Ibuprofen 400 mg 01/12/17 15:28 01/15/17 21:54 Motrin - PO 400 mg Q6H PRN Administration PAIN Lactulose 20 gm 01/12/17 22:00 01/21/17 09:51 Cephulac (Oral Use) PO 20 gm BID JOE Administration Loperamide HCl 4 mg 01/12/17 15:28 Imodium - PO Q6H PRN DIARRHEA Magnesium Hydroxide 30 ml 01/12/17 15:28 Milk Of Magnesia - PO DAILY PRN CONSTIPATION Metoprolol Succinate 100 mg 01/13/17 10:00 01/21/17 09:51 Toprol Xl - PO 100 mg DAILY JOE Administration Multivit/Folic Acid/Iron 1 tab 01/13/17 10:00 01/21/17 09:51 Vitamins (Sjr) - PO 1 tab DAILY JOE Administration Pseudoephedrine/Triprolidine 1 combo 01/12/17 15:28 Actifed - PO TID PRN NASAL CONGESTION Thiamine HCl 100 mg 01/12/17 22:00 01/20/17 21:39 Vitamin B1 - PO 100 mg HS JOE Administration Current Side Effect: No Lab tests ordered: No Lab tests reviewed: Yes Provider note:: Patient will complete this proigram tomorrow 01/22/17.He has met his treatment goals and will continue to address his issues on outpatient basis at [facility] in the [place].Patient reports finding that current management helps him to cope with his addiction.Patient identifies areas of disfficulties and ways,support system,coping skills he can utilize to maintain recovery. Supportive therapy privided. Patient is stable for discharge tomorrow 01/22/17. Total face to face time:: 30 Mental Status Exam - Mental Status Exam Alert and Oriented to: Time, Place, Person Cognitive Function: Grossly Intact Patient Appearance: Well Groomed Mood: Euthymic Affect: Appropriate, Mood Congruent Patient Behavior: Cooperative Speech Pattern: Clear Voice Loudness: Normal Thought Process: Goal Oriented Thought Disorder: Not Present Hallucinations: Denies Suicidal Ideation: Denies Homicidal Ideation: Denies Insight/Judgement: Fair Sleep: Well Appetite: Good Muscle strength/Tone: Normal Gait/Station: Normal Psychiatric Treatment Plan - Problem List (1) Alcohol dependence Current Visit: Yes (2) Contact dermatitis Current Visit: Yes (3) Hemorrhoid Current Visit: Yes (4) Hypertension Current Visit: No Qualifiers: (5) Nicotine dependence Current Visit: No Qualifiers:
[2017-01-21] MEDS: diphenhydrAMINE HCL 50 MG CAPSULE PO PRN (21:28)
[2017-01-21] MEDS: IBUPROFEN 400 MG TABLET (FP) PO PRN (21:28)
[2017-01-21] MEDS: THIAMINE HCL 100 MG TABLET (FP) PO SCH (21:30)
[2017-01-21] MEDS ORDERED: DOCUSATE SODIUM 100 MG CAPSULE (FP) PO SCH (22:00)
[2017-01-22 06:56] VITALS: TEMP 97.7
[2017-01-22] MEDS: FERROUS SO4 325 MG TABLET (FP) PO SCH (07:27)
[2017-01-22] MEDS: PRENATAL VITAMINS W/ FOLIC ACID TABLET (FP) PO SCH (10:28)
[2017-01-22] MEDS: HYDROCORTISONE 2.5% TOPICAL CREAM 30 GM TUBE TP SCH (10:28)
[2017-01-22] MEDS: METOPROLOL SUCCINATE 100 MG TAB.SR.24H (FP) PO SCH (10:28)
[2017-01-22] MEDS: LACTULOSE 20 GM/30 ML UDC (FOR ORAL USE ONLY) PO SCH (10:28)
[2017-01-22] MEDS: FLUOCINONIDE 0.05% TOP OINT (60 GM TUBE) TP SCH (10:30)
[2017-01-22 10:56] VITALS: BP 109/72
== END 2017-01-22 12:40 | disposition home or self-care (01) | DRG 895 ==
LOC: YASAS 12:39 → Y3W 12:41
PROVIDERS: ADMIT Psychiatry & Neurology Psychiatry; ATTEND Psychiatry & Neurology Psychiatry
PROC: HZ42ZZZ Group Counseling for Substance Abuse Treatment, Cognitive-Behavioral (ICD-10-PCS; principal; 2017-01-12)
DX: F10.20 Alcohol dependence, uncomplicated (principal); F17.210 Nicotine dependence, cigarettes, uncomplicated; F31.9 Bipolar disorder, unspecified; F32.9 Major depressive disorder, single episode, unspecified; I10 Essential (primary) hypertension; K64.8 Other hemorrhoids; G47.00 Insomnia, unspecified; L25.9 Unspecified contact dermatitis, unspecified cause; R07.89 Other chest pain
CPT/HCPCS: 36415; 80053; 82140; 90732; G0009

== ENCOUNTER 2017-06-30 12:10 | Inpatient (IN) | payer OTHER ==
[2017-06-30 14:29] VITALS: BMI 28.5
--- NOTE | 2017-06-30 14:49 | HP ---
CIWA Score - CIWA Score Nausea/Vomitin-Mild Nausea/No Vomiting Muscle Tremors: 4-Moderate,w/Arms Extend Anxiety: 4-Mod. Anxious/Guarded Agitation: 4-Moderately Restless Paroxysmal Sweats: 1-Minimal Palms Moist Orientation: 3-Disoriented Date>2 days Tacttile Disturbances: 1-Very Mild Itch/Numbness Auditory Disturbances: 0-None Visual Disturbances: 0-None Headache: 0-None Present CIWA-Ar Total Score: 18 Admission ROS S - HPI Chief Complaint: withdrawal sx Allergies/Adverse Reactions: Allergies Allergy/AdvReac Type Severity Reaction Status Date / Time No Known Allergies Allergy Verified 01/08/17 14:30 History of Present Illness: 62 years old male with long history of alcohol dependence has anemia and depression is admitted to detox Exam Limitations: No Limitations - Ebola screening Have you traveled outside of the country in the last 21 days: No (N) Have you had contact with anyone from an Ebola affected area: No Have you been sick,other than usual withdrawal symptoms: No Do you have a fever: No - Review of Systems Constitutional: Changes in sleep, Weight Stable EENT: reports: Blurred Vision (need eye glasses) Respiratory: reports: Productive cough Cardiac: reports: No Symptoms Reported GI: reports: Nausea, Poor Fluid Intake, Abdominal cramping : reports: No Symptoms Reported Musculoskeletal: reports: No Symptoms Reported Integumentary: reports: No Symptoms Reported Neuro: reports: Tremors Endocrine: reports: No Symptoms Reported Hematology: reports: No Symptoms Reported Psychiatric: reports: Judgement Intact, Anxious, Depressed Other Systems: Reviewed and Negative Patient History - Patient Medical History Hx Anemia: Yes (in the past ) Hx Asthma: No Hx Chronic Obstructive Pulmonary Disease (COPD): No Hx Cancer: No Hx Cardiac Disorders: No Hx Congestive Heart Failure: No Hx Hypertension: Yes (on Metoprolol) Hx Hypercholesterolemia: No Hx Pacemaker: No HX Cerebrovascular Accident: No Hx Seizures: No Hx Dementia: No Hx Diabetes: No Hx Gastrointestinal Disorders: No Hx Liver Disease: No Hx Genitourinary Disorders: No Hx Sexually Transmitted Disorders: No (clymadia/gonerrhea in the past ) Hx Renal Disease (ESRD): No Hx Thyroid Disease: No Hx Human Immunodeficiency Virus (HIV): No (negative) Hx Hepatitis C: Yes Hx Depression: Yes Hx Suicide Attempt: No (denies) Hx Bipolar Disorder: No Hx Schizophrenia: No - Patient Surgical History Past Surgical History: Yes Hx Neurologic Surgery: No Hx Cataract Extraction: No Hx Cardiac Surgery: No Hx Lung Surgery: No Hx Breast Surgery: No Hx Breast Biopsy: No Hx Abdominal Surgery: No Hx Appendectomy: No Hx Cholecystectomy: No Hx Genitourinary Surgery: No Hx Orthopedic Surgery: Yes (rt total hip replacement 2000) Anesthesia Reaction: No - PPD History Previous Implant?: Yes Documented Results: Negative w/proof Implanted On Prior [facility] Admission?: Yes Date: 01/10/17 Results: 0 mm PPD to be Administered?: No - Smoking Cessation Smoking history: Former smoker Have you smoked in the past 12 months: No Aproximately how many cigarettes per day: 0 Hx Chewing Tobacco Use: No Initiated information on smoking cessation: No - Substance & Tx. History Hx Alcohol Use: Yes Hx Substance Use: Yes Substance Use Type: Alcohol, Marijuana Hx Substance Use Treatment: Yes (12/2016 [facility] - Substances Abused Alcohol Route: Oral Frequency: Daily Amount used: [id number] beer Age of first use: 11 Date of Last Use: 06/30/17 Marijuana/Hashish Route: Smoking Frequency: Daily Amount used: 4 joints Age of first use: 16 Date of Last Use: 06/30/17 Family Disease History - Family Disease History Family Disease History: Diabetes: Father (), CA: Brother (leukemia), Other: Father, Mother (no contact) Admission Physical Exam BHS - Vital Signs Vital Signs: Vital Signs - 24 hr 06/30/17 14:28 Temperature 97.2 F L Pulse Rate 90 Respiratory 20 Rate Blood Pressure 111/68 - Physical General Appearance: Yes: Nourished, Appropriately Dressed, Moderate Distress, Alcohol on Breath, Tremorous, Irritable, Sweating, Anxious HEENTM: Yes: Hearing grossly Normal, Normal ENT Inspection, Normocephalic, Normal Voice Respiratory: Yes: Chest Non-Tender, Lungs Clear, Normal Breath Sounds, No Respiratory Distress, No Accessory Muscle Use Neck: Yes: Supple, Trachea in good position Cardiology: Yes: Regular Rhythm, S1, S2, Tachycardia Abdominal: Yes: Normal Bowel Sounds, Non Tender, Soft Genitourinary: Yes: Within Normal Limits Back: Yes: Normal Inspection Musculoskeletal: Yes: full range of Motion, Gait Steady Extremities: Yes: Normal Inspection, Normal Range of Motion, Non-Tender, Tremors Neurological: Yes: Alert, Motor Strength 5/5, Normal Response, Depressed Affect Integumentary: Yes: Warm Lymphatic: Yes: Within Normal Limits - Diagnostic (1) Alcohol dependence with uncomplicated withdrawal Current Visit: Yes Status: Acute (2) Hepatitis C Current Visit: Yes Status: Chronic Qualifiers: Viral hepatitis chronicity: carrier Qualified Code(s): B18.2 - Chronic viral hepatitis C (3) Hemorrhoid Current Visit: Yes Status: Chronic Qualifiers: Hemorrhoid type: first degree Qualified Code(s): K64.0 - First degree hemorrhoids (4) Hypertension Current Visit: Yes Status: Chronic Qualifiers: Hypertension type: essential hypertension Cleared for Admission [facility] - Detox or Rehab [facility] Level of Care: Medically Managed Detox Regimen/Protocol: Librium [facility] Breath Alcohol Content Breath Alcohol Content: 0.138 Urine Drug Screen - Results Drug Screen Negative: No Urine Drug Screen Results: THC-Marijuana
[2017-06-30] MEDS ORDERED: P-EPHED 60MG/TRIPROLIDI 2.5MG TABLET PO PRN (14:53)
[2017-06-30] MEDS ORDERED: IBUPROFEN 400 MG TABLET (FP) PO PRN (14:53)
[2017-06-30] MEDS ORDERED: MAG HYDROX/AL HYDROX/SIMETH 30 ML UNIT-DOSE CUP PO PRN (14:53)
[2017-06-30] MEDS ORDERED: MAGNESIUM HYDROX 2400MG/30ML ORAL SUSPENSION 30 ML CUP PO PRN (14:53)
[2017-06-30] MEDS ORDERED: ACETAMINOPHEN 325 MG TABLET (FP) PO PRN (14:53)
[2017-06-30] MEDS ORDERED: LOPERAMIDE HCL 2 MG CAPSULE PO PRN (14:53)
[2017-06-30] MEDS ORDERED: MENTHOL/PHENOL 1 EACH UD MM PRN (14:53)
[2017-06-30] MEDS ORDERED: MAGNESIUM CITRATE 300 ML BOTTLE PO PRN (14:53)
[2017-06-30] MEDS ORDERED: guaiFENesin/D-METHORPHAN HB 10 ML UNIT-DOSE CUPS PO PRN (14:53)
[2017-06-30] MEDS ORDERED: BENZOCAINE 28 GM HEMORRHOIDAL OINTMENT PR PRN (14:56)
[2017-06-30] MEDS: chlordiazePOXIDE HCL 25 MG CAPSULE PO PRN (18:43)
[2017-06-30] MEDS ORDERED: chlordiazePOXIDE HCL 25 MG CAPSULE PO ONE (19:23)
--- NOTE | 2017-06-30 19:26 | PN ---
S Progress Note Note: Patient currently stable, asymptomatic, no acute distress. EKG: A-Fib v/s 105/ 69 p80 r18 T98.3. Consulted with Dr. Tiwari. One stat dose Librium 50 mg increase fluids repeat EKG
[2017-06-30] MEDS: chlordiazePOXIDE HCL 25 MG CAPSULE PO SCH (22:16)
[2017-06-30] MEDS: THIAMINE HCL 100 MG TABLET (FP) PO SCH (22:16)
[2017-07-01] MEDS: chlordiazePOXIDE HCL 25 MG CAPSULE PO PRN (01:13)
[2017-07-01] MEDS: chlordiazePOXIDE HCL 25 MG CAPSULE PO SCH ×4 (05:30→22:16)
--- NOTE | 2017-07-01 07:37 | PN ---
[facility] Progress Note Note: Patient was seen and examined at bedside. Patient has 3 abnormal EKG that indicates atrial fibrillation. His EKG on prior admission in December 2016 was normal sinus rhythm. He has medical history of HTN and is on metoprolol. He denies any other cardiac condition, use of antarrhythmic agent or blood thinners. Vital signs B/P 110/68, HR 80,. R 18, T96.3. Patient is being sent to ER for further evaluation. Endorsed to Dr. Nice.
--- NOTE | 2017-07-01 09:39 | PN ---
S Progress Note Note: Called by Ed, patiet assessed, rate controlled, h/o Af, will accept back to detox continue metoproll at 50mg (ususal dose 100mg) because of libirum, can increase if bp raised or rat increases. rate controlled af - old. this does not need further evaluation in Ed.
[2017-07-01 10:23] LABS: HEMATOCRIT 34.5 % (35.4-49); HEMOGLOBIN 11.4 GM/dL (11.7-16.9); MCH 34.4 pg (25.7-33.7); MEAN CELL VOLUME 104.3 fl (80-96); MEAN PLT VOLUME 11.9 fl (7.5-11.1); RDW 17.4 % (11.9-15.9); WHITE BLOOD COUNT 5.4 K/mm3 (4.0-10.0)
[2017-07-01 10:35] LABS: PLATELET COUNT 33 K/MM3 (134-434)
[2017-07-01 10:43] LABS: ALBUMIN 2.2 g/dl (3.4-5.0); ANION GAP 9 (8-16); BLOOD UREA NITROGEN 10 mg/dL (7-18); CALCIUM 7.9 mg/dL (8.5-10.1); CHLORIDE 106 mmol/L (98-107); CO2 26 mmol/L (21-32); CREATININE 0.9 mg/dL (0.7-1.3); GLUCOSE,RANDOM 101 mg/dL (74-106); SGOT/AST 108 U/L (15-37); SGPT/ALT 48 U/L (12-78); SODIUM 141 mmol/L (136-145)
[2017-07-01 10:44] LABS: ALK PHOS 248 U/L (45-117); BILIRUBIN,TOTAL 4.3 mg/dL (0.2-1.0); TOT PROT 7.4 g/dl (6.4-8.2)
[2017-07-01] MEDS: PRENATAL VITAMINS W/ FOLIC ACID TABLET (FP) PO SCH (10:50)
--- NOTE | 2017-07-01 10:54 | EKG ---
Test Reason : Blood Pressure : / mmHG Vent. Rate : 094 BPM Atrial Rate : 091 BPM P-R Int : 000 ms QRS Dur : 092 ms QT Int : 376 ms P-R-T Axes : 000 048 061 degrees QTc Int : 470 ms ATRIAL FIBRILLATION ABNORMAL ECG WHEN COMPARED WITH ECG OF 30-JUN-2017 19:00, NO SIGNIFICANT CHANGE WAS FOUND Confirmed by ALINA SINHA MD ([id number]) on 07/01/2017 10:54:38 AM Referred By: Confirmed By:ALINA SINHA MD
--- NOTE | 2017-07-01 10:54 | EKG ---
Test Reason : Blood Pressure : / mmHG Vent. Rate : 091 BPM Atrial Rate : 277 BPM P-R Int : 000 ms QRS Dur : 090 ms QT Int : 364 ms P-R-T Axes : 000 059 053 degrees QTc Int : 447 ms ATRIAL FIBRILLATION ABNORMAL ECG WHEN COMPARED WITH ECG OF 08-JAN-2017 17:30, ATRIAL FIBRILLATION HAS REPLACED SINUS RHYTHM T WAVE AMPLITUDE HAS DECREASED IN ANTEROLATERAL LEADS Confirmed by ERNESTINE MCGRATH, ALINA ([id number]) on 07/01/2017 10:54:26 AM Referred By: Confirmed By:ALINA SINHA MD
--- NOTE | 2017-07-01 10:56 | EKG ---
Test Reason : Blood Pressure : / mmHG Vent. Rate : 084 BPM Atrial Rate : 090 BPM P-R Int : 000 ms QRS Dur : 094 ms QT Int : 404 ms P-R-T Axes : 000 050 045 degrees QTc Int : 477 ms ATRIAL FIBRILLATION ABNORMAL ECG WHEN COMPARED WITH ECG OF 30-JUN-2017 21:14, NO SIGNIFICANT CHANGE WAS FOUND Confirmed by ALINA SINHA MD ([id number]) on 07/01/2017 10:56:17 AM Referred By: Confirmed By:ALINA SINHA MD
--- NOTE | 2017-07-01 12:37 | PN ---
[facility] CIWA - CIWA Score Nausea/Vomitin-No Nausea/No Vomiting Muscle Tremors: 4-Moderate,w/Arms Extend Anxiety: 4-Mod. Anxious/Guarded Agitation: 3 Paroxysmal Sweats: 1-Minimal Palms Moist Orientation: 0-Oriented Tacttile Disturbances: 3-Moderate Itch/Numb/Burn Auditory Disturbances: 0-None Visual Disturbances: 0-None Headache: 0-None Present CIWA-Ar Total Score: 15 S Progress Note (SOAP) Subjective: PT RETURNED FROM ER IN STABLE CONDITION. ALERT O X 3. OOB AMBULATING WITH STEADY GAIT. DENIES CHEST PAIN. SOB OR DIZZINESS. Objective: 07/01/17 12:35 Vital Signs 07/01/17 07/01/17 07/01/17 06:15 07:34 10:50 Temperature 98 F 96.3 F L 97.7 F Pulse Rate 88 80 71 Respiratory 18 18 18 Rate Blood Pressure 118/69 110/68 107/66 Laboratory Last Values WBC 5.4 K/mm3 (4.0-10.0) D 07/01/17 06:00 RBC 3.30 M/mm3 (4.00-5.60) L 07/01/17 06:00 Hgb 11.4 GM/dL (11.7-16.9) L D 07/01/17 06:00 Hct 34.5 % (35.4-49) L D 07/01/17 06:00 MCV 104.3 fl (80-96) H 07/01/17 06:00 MCH 34.4 pg (25.7-33.7) H 07/01/17 06:00 MCHC 33.0 g/dl (32.0-35.9) 07/01/17 06:00 RDW 17.4 % (11.9-15.9) H 07/01/17 06:00 Plt Count 33 K/MM3 (134-434) L* D 07/01/17 06:00 MPV 11.9 fl (7.5-11.1) H 07/01/17 06:00 Sodium 141 mmol/L (136-145) 07/01/17 06:00 Potassium 4.0 mmol/L (3.5-5.1) 07/01/17 06:00 Chloride 106 mmol/L (98-107) 07/01/17 06:00 Carbon Dioxide 26 mmol/L (21-32) 07/01/17 06:00 Anion Gap 9 (8-16) 07/01/17 06:00 BUN 10 mg/dL (7-18) 07/01/17 06:00 Creatinine 0.9 mg/dL (0.7-1.3) 07/01/17 06:00 Creat Clearance w eGFR > 60 (>60) 07/01/17 06:00 Random Glucose 101 mg/dL (74-106) 07/01/17 06:00 Calcium 7.9 mg/dL (8.5-10.1) L 07/01/17 06:00 Total Bilirubin 4.3 mg/dL (0.2-1.0) H 07/01/17 06:00 AST 108 U/L (15-37) H 07/01/17 06:00 ALT 48 U/L (12-78) 07/01/17 06:00 Alkaline Phosphatase 248 U/L (45-117) H 07/01/17 06:00 Total Protein 7.4 g/dl (6.4-8.2) 07/01/17 06:00 Albumin 2.2 g/dl (3.4-5.0) L 07/01/17 06:00 Laboratory Results - last 24 hr 07/01/17 07/01/17 06:00 06:00 WBC 5.4 D RBC 3.30 L Hgb 11.4 L D Hct 34.5 L D MCV 104.3 H MCH 34.4 H MCHC 33.0 RDW 17.4 H Plt Count 33 L* D MPV 11.9 H Sodium 141 Potassium 4.0 Chloride 106 Carbon Dioxide 26 Anion Gap 9 BUN 10 Creatinine 0.9 Creat Clearance w eGFR > 60 Random Glucose 101 Calcium 7.9 L Total Bilirubin 4.3 H AST 108 H ALT 48 Alkaline Phosphatase 248 H Total Protein 7.4 Albumin 2.2 L Assessment: 07/01/17 12:36 WITHDRAWAL SX Plan: CONTINUE DETOX
--- NOTE | 2017-07-01 17:08 | CONSULT ---
[facility] Psychiatric Consult - Data Date of interview: 07/01/17 Admission source: [facility] Identifying data: Readmission to [facility] for this 62 y/o male seeking detox treatment on for alcohol and marihuana dependence.Patient is in a long standing common-law relationship,father of seven,domiciled and currently retired (supported on his pension benefits). Substance Abuse History: Patient admits to daily use of alcohol and marihuana.Details in current [facility] report.Smoking history: Former smoker. Have you smoked in the past 12 months: No. Aproximately how many cigarettes per day : 0. Hx Chewing Tobacco Use: No. Initiated information on smoking cessation: No. - Substance & Tx. History. Hx Alcohol Use: Yes. Hx Substance Use: Yes. Substance Use Type: Alcohol, Marijuana. Hx Substance Use Treatment: Yes (2016 [facility]). - Substances Abused. Alcohol. Route: Oral. Frequency: Daily. Amount used: [id number] beer. Age of first use: 11. Date of Last Use: 11/09. Marijuana/Hashish. Route: Smoking. Frequency: Daily. Amount used: 4 joints. Age of first use: 16. Date of Last Use: 06/30/17 Medical History: Hepatitis C,history of anemia,past treatment for chlamydia/ gonorrhea and total right hip replacement (2000). Psychiatric History: Patient denies. Physical/Sexual Abuse/Trauma History: Patient denies. Additional Comment: Urine Drug Screen Results: THC-Marijuana.Noted. Mental Status Exam - Mental Status Exam Alert and Oriented to: Time, Place, Person Cognitive Function: Good Patient Appearance: Well Groomed Mood: Hopeful, Euthymic Affect: Appropriate, Normal Range Patient Behavior: Fatigued, Appropriate, Cooperative Speech Pattern: Clear, Appropriate Voice Loudness: Normal Thought Process: Intact, Goal Oriented Thought Disorder: Not Present Hallucinations: Denies Suicidal Ideation: Denies Homicidal Ideation: Denies Insight/Judgement: Poor Sleep: Poorly, Difficulty falling asleep Appetite: Good Muscle strength/Tone: Normal Gait/Station: Normal Psychiatric Findings - Problem List ([place] 1, 2,3) (1) Alcohol dependence with uncomplicated withdrawal Current Visit: Yes Status: Acute (2) Marijuana dependence Current Visit: Yes Status: Acute (3) Nicotine dependence Current Visit: Yes Status: Acute Qualifiers: Nicotine product type: cigarettes Substance use status: in withdrawal Qualified Code(s): F17.213 - Nicotine dependence, cigarettes, with withdrawal (4) Insomnia Current Visit: Yes Status: Acute - Initial Treatment Plan Initial Treatment Plan: Psychoeducation and support.Detoxification initiated.Sleep hygiene discussed.Ambien 5 mg po hs prn.Patient is made aware of risk of parasomnias.He expressed his agreement to this careplan.Observation.
[2017-07-01] MEDS: THIAMINE HCL 100 MG TABLET (FP) PO SCH (22:16)
[2017-07-01] MEDS: ZOLPIDEM TARTRATE 5 MG TABLET PO PRN (22:16)
[2017-07-02] MEDS: chlordiazePOXIDE HCL 25 MG CAPSULE PO PRN (00:39)
[2017-07-02] MEDS: chlordiazePOXIDE HCL 25 MG CAPSULE PO SCH ×3 (05:26→19:16)
[2017-07-02] MEDS: PRENATAL VITAMINS W/ FOLIC ACID TABLET (FP) PO SCH (10:05)
[2017-07-02 10:15] LABS: HEMATOCRIT 35.3 % (35.4-49); HEMOGLOBIN 11.7 GM/dL (11.7-16.9); MCH 34.9 pg (25.7-33.7); MCHC 33.1 g/dl (32.0-35.9); MEAN CELL VOLUME 105.3 fl (80-96); MEAN PLT VOLUME 10.8 fl (7.5-11.1); RBC 3.35 M/mm3 (4.00-5.60); RDW 17.8 % (11.9-15.9); WHITE BLOOD COUNT 4.8 K/mm3 (4.0-10.0)
[2017-07-02 10:20] LABS: PLATELET COUNT 35 K/MM3 (134-434)
[2017-07-02 10:27] LABS: ALBUMIN 1.8 g/dl (3.4-5.0); ANION GAP 7 (8-16); BLOOD UREA NITROGEN 12 mg/dL (7-18); CALCIUM 8.5 mg/dL (8.5-10.1); CHLORIDE 104 mmol/L (98-107); CO2 28 mmol/L (21-32); CREATININE 0.8 mg/dL (0.7-1.3); GLUCOSE,RANDOM 94 mg/dL (74-106); POTASSIUM 3.9 mmol/L (3.5-5.1); SGOT/AST 83 U/L (15-37); SGPT/ALT 39 U/L (12-78); SODIUM 139 mmol/L (136-145)
[2017-07-02 10:29] LABS: ALK PHOS 219 U/L (45-117); BILIRUBIN,TOTAL 4.3 mg/dL (0.2-1.0); TOT PROT 6.7 g/dl (6.4-8.2)
--- NOTE | 2017-07-02 10:36 | PN ---
[facility] CIWA - CIWA Score Nausea/Vomitin-No Nausea/No Vomiting Muscle Tremors: 3 Anxiety: 4-Mod. Anxious/Guarded Agitation: 3 Paroxysmal Sweats: 1-Minimal Palms Moist Orientation: 0-Oriented Tacttile Disturbances: 3-Moderate Itch/Numb/Burn Auditory Disturbances: 0-None Visual Disturbances: 0-None Headache: 0-None Present CIWA-Ar Total Score: 14 BHS Progress Note (SOAP) Subjective: SLIGHT TREMORS AND ANXIETY. OOB AROUND THE UNIT. DENIES ANY CP OR DIZZINESS. PT REPORTS HE HAS APPOINTMENT WITH HIS "LIVER DOCTOR" ON June. ENCOURAGED PT TO REMAIN SOBER AFTER DETOX AND F/U WITH HIS MEDICAL CARE. Objective: 07/02/17 10:35 Vital Signs Temperature 96.0 F L 07/02/17 09:26 Pulse Rate 97 H 07/02/17 09:26 Respiratory Rate 19 07/02/17 09:26 Blood Pressure 114/70 07/02/17 09:26 O2 Sat by Pulse Oximetry (%) Laboratory Last Values WBC 4.8 K/mm3 (4.0-10.0) 07/02/17 07:30 RBC 3.35 M/mm3 (4.00-5.60) L 07/02/17 07:30 Hgb 11.7 GM/dL (11.7-16.9) 07/02/17 07:30 Hct 35.3 % (35.4-49) L 07/02/17 07:30 MCV 105.3 fl (80-96) H 07/02/17 07:30 MCH 34.9 pg (25.7-33.7) H 07/02/17 07:30 MCHC 33.1 g/dl (32.0-35.9) 07/02/17 07:30 RDW 17.8 % (11.9-15.9) H 07/02/17 07:30 Plt Count 35 K/MM3 (134-434) L* 07/02/17 07:30 MPV 10.8 fl (7.5-11.1) 07/02/17 07:30 Neutrophils % No Result Required. 07/02/17 07:30 Lymphocytes % No Result Required. 07/02/17 07:30 Sodium 139 mmol/L (136-145) 07/02/17 07:30 Potassium 3.9 mmol/L (3.5-5.1) 07/02/17 07:30 Chloride 104 mmol/L (98-107) 07/02/17 07:30 Carbon Dioxide 28 mmol/L (21-32) 07/02/17 07:30 Anion Gap 7 (8-16) L 07/02/17 07:30 BUN 12 mg/dL (7-18) 07/02/17 07:30 Creatinine 0.8 mg/dL (0.7-1.3) 07/02/17 07:30 Creat Clearance w eGFR > 60 (>60) 07/02/17 07:30 Random Glucose 94 mg/dL (74-106) 07/02/17 07:30 Calcium 8.5 mg/dL (8.5-10.1) 07/02/17 07:30 Total Bilirubin 4.3 mg/dL (0.2-1.0) H 07/02/17 07:30 AST 83 U/L (15-37) H D 07/02/17 07:30 ALT 39 U/L (12-78) 07/02/17 07:30 Alkaline Phosphatase 219 U/L (45-117) H 07/02/17 07:30 Total Protein 6.7 g/dl (6.4-8.2) 07/02/17 07:30 Albumin 1.8 g/dl (3.4-5.0) L 07/02/17 07:30 RPR Titer Nonreactive (NONREACTIVE) 07/01/17 06:00 HIV 1&2 Antibody Screen Negative 07/01/17 06:00 HIV P24 Antigen Negative 07/01/17 06:00 Laboratory Tests 07/01/17 07/01/17 07/01/17 06:00 06:00 06:00 WBC 5.4 D RBC 3.30 L Hgb 11.4 L D Hct 34.5 L D MCV 104.3 H MCH 34.4 H MCHC 33.0 RDW 17.4 H Plt Count 33 L* D MPV 11.9 H Neutrophils % Lymphocytes % Sodium 141 Potassium 4.0 Chloride 106 Carbon Dioxide 26 Anion Gap 9 BUN 10 Creatinine 0.9 Creat Clearance w eGFR > 60 Random Glucose 101 Calcium 7.9 L Total Bilirubin 4.3 H AST 108 H ALT 48 Alkaline Phosphatase 248 H Total Protein 7.4 Albumin 2.2 L RPR Titer Nonreactive HIV 1&2 Antibody Screen HIV P24 Antigen 07/01/17 07/02/17 07/02/17 06:00 07:30 07:30 WBC 4.8 RBC 3.35 L Hgb 11.7 Hct 35.3 L MCV 105.3 H MCH 34.9 H MCHC 33.1 RDW 17.8 H Plt Count 35 L* MPV 10.8 Neutrophils % No Result Required. Lymphocytes % No Result Required. Sodium 139 Potassium 3.9 Chloride 104 Carbon Dioxide 28 Anion Gap 7 L BUN 12 Creatinine 0.8 Creat Clearance w eGFR > 60 Random Glucose 94 Calcium 8.5 Total Bilirubin 4.3 H AST 83 H D ALT 39 Alkaline Phosphatase 219 H Total Protein 6.7 Albumin 1.8 L RPR Titer HIV 1&2 Antibody Screen Negative HIV P24 Antigen Negative Assessment: 07/02/17 10:36 WITHDRAWAL SX Plan: CONTINUE DETOX
[2017-07-02] MEDS: THIAMINE HCL 100 MG TABLET (FP) PO SCH (22:27)
[2017-07-02] MEDS: chlordiazePOXIDE 5 MG CAPSULE PO SCH (22:28)
[2017-07-02] MEDS: ZOLPIDEM TARTRATE 5 MG TABLET PO PRN (22:28)
[2017-07-03] MEDS: chlordiazePOXIDE 5 MG CAPSULE PO SCH ×3 (05:41→18:50)
[2017-07-03] MEDS: PRENATAL VITAMINS W/ FOLIC ACID TABLET (FP) PO SCH (10:05)
--- NOTE | 2017-07-03 10:35 | PN ---
[facility] Progress Note (SOAP) Subjective: OOB AMBULATING. SLIGHT ANXIETY AND TIREDNESS. Objective: 07/03/17 10:34 Laboratory Last Values WBC 4.8 K/mm3 (4.0-10.0) 07/02/17 07:30 RBC 3.35 M/mm3 (4.00-5.60) L 07/02/17 07:30 Hgb 11.7 GM/dL (11.7-16.9) 07/02/17 07:30 Hct 35.3 % (35.4-49) L 07/02/17 07:30 MCV 105.3 fl (80-96) H 07/02/17 07:30 MCH 34.9 pg (25.7-33.7) H 07/02/17 07:30 MCHC 33.1 g/dl (32.0-35.9) 07/02/17 07:30 RDW 17.8 % (11.9-15.9) H 07/02/17 07:30 Plt Count 35 K/MM3 (134-434) L* 07/02/17 07:30 MPV 10.8 fl (7.5-11.1) 07/02/17 07:30 Total Counted 100 07/02/17 07:30 Neutrophils % No Result Required. 07/02/17 07:30 Neutrophils % (Manual) 58.0 % (42.8-82.8) 07/02/17 07:30 Band Neutrophils % 1.0 % 07/02/17 07:30 Lymphocytes % No Result Required. 07/02/17 07:30 Lymphocytes % (Manual) 31.0 % (8-40) D 07/02/17 07:30 Monocytes % (Manual) 8 % (3.8-10.2) 07/02/17 07:30 Eosinophils % (Manual) 2.0 % (0-4.5) 07/02/17 07:30 Sodium 139 mmol/L (136-145) 07/02/17 07:30 Potassium 3.9 mmol/L (3.5-5.1) 07/02/17 07:30 Chloride 104 mmol/L (98-107) 07/02/17 07:30 Carbon Dioxide 28 mmol/L (21-32) 07/02/17 07:30 Anion Gap 7 (8-16) L 07/02/17 07:30 BUN 12 mg/dL (7-18) 07/02/17 07:30 Creatinine 0.8 mg/dL (0.7-1.3) 07/02/17 07:30 Creat Clearance w eGFR > 60 (>60) 07/02/17 07:30 Random Glucose 94 mg/dL (74-106) 07/02/17 07:30 Calcium 8.5 mg/dL (8.5-10.1) 07/02/17 07:30 Total Bilirubin 4.3 mg/dL (0.2-1.0) H 07/02/17 07:30 AST 83 U/L (15-37) H D 07/02/17 07:30 ALT 39 U/L (12-78) 07/02/17 07:30 Alkaline Phosphatase 219 U/L (45-117) H 07/02/17 07:30 Total Protein 6.7 g/dl (6.4-8.2) 07/02/17 07:30 Albumin 1.8 g/dl (3.4-5.0) L 07/02/17 07:30 RPR Titer Nonreactive (NONREACTIVE) 07/01/17 06:00 HIV 1&2 Antibody Screen Negative 07/01/17 06:00 HIV P24 Antigen Negative 07/01/17 06:00 Assessment: 07/03/17 10:34 WITHDRAWAL SX Plan: CONTINUE DETOX INCREASE PO FLUIDS
[2017-07-03] MEDS: BENZOCAINE 28 GM HEMORRHOIDAL OINTMENT PR PRN ×2 (11:32→22:24)
[2017-07-03 15:23] LABS: URINE APPEARANCE CLEAR; URINE BILIRUBIN NEGATIVE (NEGATIVE); URINE BLOOD NEGATIVE (NEGATIVE); URINE COLOR AMBER; URINE GLUCOSE (UA) NEGATIVE (NEGATIVE); URINE KETONE NEGATIVE (NEGATIVE); URINE LEUK ESTERASE NEGATIVE (NEGATIVE); URINE NITRITE NEGATIVE (NEGATIVE); URINE PROTEIN NEGATIVE (NEGATIVE); URINE UROBILINOGEN 4.0 E.U/dl mg/dL (0.2-1.0)
[2017-07-03] MEDS: ZOLPIDEM TARTRATE 5 MG TABLET PO PRN (22:21)
[2017-07-03] MEDS: chlordiazePOXIDE HCL 10 MG CAPSULE PO SCH (22:21)
[2017-07-03] MEDS: THIAMINE HCL 100 MG TABLET (FP) PO SCH (22:22)
[2017-07-04] MEDS: chlordiazePOXIDE HCL 10 MG CAPSULE PO SCH ×3 (05:11→17:21)
[2017-07-04] MEDS: PRENATAL VITAMINS W/ FOLIC ACID TABLET (FP) PO SCH (10:10)
--- NOTE | 2017-07-04 15:50 | PN ---
[facility] Progress Note (SOAP) Subjective: Sweating, interrupted sleep Objective: 07/04/17 15:49 Last Vital Signs Temp Pulse Resp BP Pulse Ox 98.0 F 79 16 104/60 07/04/17 13:52 07/04/17 13:52 07/04/17 13:52 07/04/17 13:52 Laboratory Tests 07/01/17 07/01/17 07/01/17 06:00 06:00 06:00 WBC 5.4 D RBC 3.30 L Hgb 11.4 L D Hct 34.5 L D MCV 104.3 H MCH 34.4 H MCHC 33.0 RDW 17.4 H Plt Count 33 L* D MPV 11.9 H Total Counted Neutrophils % Neutrophils % (Manual) Band Neutrophils % Lymphocytes % Lymphocytes % (Manual) Monocytes % (Manual) Eosinophils % (Manual) Sodium 141 Potassium 4.0 Chloride 106 Carbon Dioxide 26 Anion Gap 9 BUN 10 Creatinine 0.9 Creat Clearance w eGFR > 60 Random Glucose 101 Calcium 7.9 L Total Bilirubin 4.3 H AST 108 H ALT 48 Alkaline Phosphatase 248 H Total Protein 7.4 Albumin 2.2 L Urine Color Urine Appearance Urine pH Ur Specific [place] Urine Protein Urine Glucose (UA) Urine Ketones Urine Blood Urine Nitrite Urine Bilirubin Urine Urobilinogen Ur Leukocyte Esterase RPR Titer Nonreactive HIV 1&2 Antibody Screen HIV P24 Antigen 07/01/17 07/02/17 07/02/17 06:00 07:30 07:30 WBC 4.8 RBC 3.35 L Hgb 11.7 Hct 35.3 L MCV 105.3 H MCH 34.9 H MCHC 33.1 RDW 17.8 H Plt Count 35 L* MPV 10.8 Total Counted 100 Neutrophils % No Result Required. Neutrophils % (Manual) 58.0 Band Neutrophils % 1.0 Lymphocytes % No Result Required. Lymphocytes % (Manual) 31.0 D Monocytes % (Manual) 8 Eosinophils % (Manual) 2.0 Sodium 139 Potassium 3.9 Chloride 104 Carbon Dioxide 28 Anion Gap 7 L BUN 12 Creatinine 0.8 Creat Clearance w eGFR > 60 Random Glucose 94 Calcium 8.5 Total Bilirubin 4.3 H AST 83 H D ALT 39 Alkaline Phosphatase 219 H Total Protein 6.7 Albumin 1.8 L Urine Color Urine Appearance Urine pH Ur Specific [place] Urine Protein Urine Glucose (UA) Urine Ketones Urine Blood Urine Nitrite Urine Bilirubin Urine Urobilinogen Ur Leukocyte Esterase RPR Titer HIV 1&2 Antibody Screen Negative HIV P24 Antigen Negative 07/03/17 11:50 WBC RBC Hgb Hct MCV MCH MCHC RDW Plt Count MPV Total Counted Neutrophils % Neutrophils % (Manual) Band Neutrophils % Lymphocytes % Lymphocytes % (Manual) Monocytes % (Manual) Eosinophils % (Manual) Sodium Potassium Chloride Carbon Dioxide Anion Gap BUN Creatinine Creat Clearance w eGFR Random Glucose Calcium Total Bilirubin AST ALT Alkaline Phosphatase Total Protein Albumin Urine Color [place] Urine Appearance Clear Urine pH 6.0 Ur Specific [place] 1.015 Urine Protein Negative Urine Glucose (UA) Negative Urine Ketones Negative Urine Blood Negative Urine Nitrite Negative Urine Bilirubin Negative Urine Urobilinogen 4.0 e.u/dl Ur Leukocyte Esterase Negative RPR Titer HIV 1&2 Antibody Screen HIV P24 Antigen Labs noted Assessment: 07/04/17 15:49 Withdrawal symptoms Plan: Continue detox
[2017-07-04] MEDS: THIAMINE HCL 100 MG TABLET (FP) PO SCH (22:07)
[2017-07-05] MEDS ORDERED: hydrOXYzine PAMOATE 50 MG CAPSULE (FP) PO PRN (00:25)
[2017-07-05 06:16] VITALS: TEMP 96.2
[2017-07-05 09:25] VITALS: BP 98/75; PULSE 79
[2017-07-05] MEDS: PRENATAL VITAMINS W/ FOLIC ACID TABLET (FP) PO SCH (10:11)
--- NOTE | 2017-07-05 13:35 | DS ---
[facility] Detox Discharge Summary Admission Date: 06/30/17 Discharge Date: 07/05/17 - History Pertinent Past History: HTN Anemia Hep c Depression - Physical Exam Results Vital Signs: Vital Signs Temperature 96.2 F L 07/05/17 06:16 Pulse Rate 79 07/05/17 09:24 Respiratory Rate 18 07/05/17 09:24 Blood Pressure 98/75 07/05/17 09:24 O2 Sat by Pulse Oximetry (%) Pertinent Admission Physical Exam Findings: withdrawal sx Vital Signs Temperature 96.2 F L 07/05/17 06:16 Pulse Rate 79 07/05/17 09:24 Respiratory Rate 18 07/05/17 09:24 Blood Pressure 98/75 07/05/17 09:24 O2 Sat by Pulse Oximetry (%) - Treatment Hospital Course: Detox Protocol Followed, Detoxed Safely, Responded well, Discharged Condition Good - Medication Discharge Medications: Ambulatory Orders Metoprolol Succinate [Toprol XL -] 100 mg PO DAILY 30 Days #30 tab.sr.24h - Diagnosis (1) Alcohol dependence with uncomplicated withdrawal Status: Acute (2) Marijuana dependence Status: Acute (3) Depression Status: Chronic (4) Hepatitis C Status: Chronic Qualifiers: Viral hepatitis chronicity: carrier Qualified Code(s): B18.2 - Chronic viral hepatitis C (5) Hypertension Status: Chronic Qualifiers: Hypertension type: essential hypertension Qualified Code(s): I10 - Essential (primary) hypertension - AMA Did Patient Leave Against Medical Advice: No
== END 2017-07-05 13:22 | disposition home or self-care (01) | DRG 897 ==
LOC: YASAS 12:10 → Y3N 17:06
PROVIDERS: ADMIT Internal Medicine; ATTEND Internal Medicine
PROC: HZ2ZZZZ Detoxification Services for Substance Abuse Treatment (ICD-10-PCS; principal; 2017-06-30)
DX: F10.230 Alcohol dependence with withdrawal, uncomplicated (principal); F12.20 Cannabis dependence, uncomplicated; F17.213 Nicotine dependence, cigarettes, with withdrawal; F32.9 Major depressive disorder, single episode, unspecified; I48.91 Unspecified atrial fibrillation; I10 Essential (primary) hypertension; B18.2 Chronic viral hepatitis C; G47.00 Insomnia, unspecified; R00.0 Tachycardia, unspecified; K64.0 First degree hemorrhoids; Z87.438 Personal history of other diseases of male genital organs; Z96.641 Presence of right artificial hip joint
CPT/HCPCS: 36415; 80053; 81003; 85025; 85027; 86593; 87389; 93005; 93010

== ENCOUNTER 2017-07-01 08:38 | Emergency (ER) | payer OTHER ==
[2017-07-01 08:53] VITALS: TEMP 97.7; BMI 27.8
[2017-07-01] MEDS ORDERED: METOPROLOL TARTRATE 50 MG TABLET (FP) PO ONE (09:13)
--- NOTE | 2017-07-01 09:13 | PDOC ---
History of Present Illness - General History Source: Patient Exam Limitations: No Limitations - History of Present Illness Initial Comments: 07/01/17 09:33 Patient is a 62 year old male, from [facility], with a significant past medical history of Alcohol dependence, and Afib who was brought by EMS to the ED s/p Afib that began 30 mints prior to ED arrival. As per [facility] staff, patient began to exhibit signs of Afib, and needed to be brought into the ED for further evaluation. Patient reports being in [facility] for alcohol detox, stating his last drink was superbowl thursday. He reports being on metoprolol but states he is unsure as to when was the last time he took it. Patient currently has no injuries or complaints in the ED and requests to return to [facility] to resume his detox. Denies chest pain, SOB. Denies nausea, vomiting. Denies fevers, chills. Denies contact with sick individuals, out of state traveling. Denies any other symptoms. Allergies: None Social history: Former smoker.. Former drinker. No illicit drugs. Surgical history: None PMD: None <Quique Moran - Last Filed: 07/01/17 09:35> <Kimmie Nice - Last Filed: 07/01/17 09:37> - General Chief Complaint: Irregular Heart Beat Stated Complaint: POSSIBLE AFIB Time Seen by Provider: 07/01/17 08:55 Past History <Quique Moran - Last Filed: 07/01/17 09:35> - Past Medical History Anemia: Yes (in the past ) Asthma: No Cancer: No Cardiac Disorders: Yes (Afib) CVA: No COPD: No CHF: No Dementia: No Diabetes: No GI Disorders: No Disorders: No HTN: Yes Hypercholesterolemia: No Kidney Stones: No Liver Disease: Yes (hep C) Seizures: No Thyroid Disease: No - Surgical History Abdominal Surgery: No Appendectomy: No Cardiac Surgery: No Cholecystectomy: No Lung Surgery: No Neurologic Surgery: No Orthopedic Surgery: Yes (rt total hip replacement 2000) - Reproductive History Testicular Surgery: No - Suicide/Smoking/Psychosocial Hx Smoking History: Former smoker Have you smoked in the past 12 months: No Number of Cigarettes Smoked Daily: 0 If you are a former smoker, when did you quit?: 15 yrs. ago Information on smoking cessation initiated: No 'Breaking Loose' booklet given: 01/08/17 Hx Alcohol Use: Yes (in rehab at present time) Drug/Substance Use Hx: No Substance Use Type: Alcohol, Marijuana Hx Substance Use Treatment: Yes <Kimmie Nice - Last Filed: 07/01/17 09:37> - Past Medical History Allergies/Adverse Reactions: Allergies Allergy/AdvReac Type Severity Reaction Status Date / Time No Known Allergies Allergy Verified 07/01/17 08:48 Home Medications: Ambulatory Orders Metoprolol Succinate [Toprol XL -] 100 mg PO DAILY 01/08/17 Review of Systems - Review of Systems Able to Perform ROS?: Yes Comments:: 07/01/17 09:33 GENERAL/CONSTITUTIONAL: No fever or chills. No weakness. HEAD, EYES, EARS, NOSE AND THROAT: No change in vision. No ear pain or discharge. No sore throat. GASTROINTESTINAL: No nausea, vomiting, diarrhea or constipation. GENITOURINARY: No dysuria, frequency, or change in urination. CARDIOVASCULAR: No chest pain or shortness of breath. RESPIRATORY: No cough, wheezing, or hemoptysis. MUSCULOSKELETAL: No joint or muscle swelling or pain. No neck or back pain. SKIN: No rash NEUROLOGIC: No headache, vertigo, loss of consciousness, or change in strength/ sensation. ENDOCRINE: No increased thirst. No abnormal weight change. HEMATOLOGIC/LYMPHATIC: No anemia, easy bleeding, or history of blood clots. ALLERGIC/IMMUNOLOGIC: No hives or skin allergy. All Other Systems: Reviewed and Negative <Quique Moran - Last Filed: 07/01/17 09:35> *Physical Exam - Vital Signs Last Vital Signs Temp Pulse Resp BP Pulse Ox 97.7 F 86 20 115/83 100 07/01/17 08:48 07/01/17 09:24 07/01/17 09:24 07/01/17 09:24 07/01/17 09:24 - Physical Exam Comments: 07/01/17 09:34 GENERAL: Awake, alert, and fully oriented, in no acute distress HEAD: No signs of trauma EYES: PERRLA, EOMI, sclera anicteric, conjunctiva clear ENT: Auricles normal inspection, hearing grossly normal, nares patent, oropharynx clear without exudates. Moist mucosa NECK: Normal ROM, supple, no lymphadenopathy, JVD, or masses LUNGS: Breath sounds equal, clear to auscultation bilaterally. No wheezes, and no crackles HEART: +Irregularly irregular. Regular rate and rhythm, normal S1 and S2, no murmurs, rubs or gallops ABDOMEN: Soft, nontender, normoactive bowel sounds. No guarding, no rebound. No masses EXTREMITIES: +Trace edema in lower extremities bilaterally. Normal range of motion,. No clubbing or cyanosis. No cords, erythema, or tenderness NEUROLOGICAL: Cranial nerves II through XII grossly intact. Normal speech, normal gait SKIN: Warm, Dry, normal turgor, no rashes or lesions noted. <Quique Moran - Last Filed: 07/01/17 09:35> - Vital Signs Last Vital Signs Temp Pulse Resp BP Pulse Ox 97.7 F 88 18 117/78 100 07/01/17 08:48 07/01/17 08:48 07/01/17 08:48 07/01/17 08:48 07/01/17 08:48 <Kimmie Nice - Last Filed: 07/01/17 09:37> Heart Score/ECG Review - ECG Intrepretation Comment:: 07/01/17 09:19 afib at 85, nl axis, nl interval, no acute st/t wave findings <Kimmie Nice - Last Filed: 07/01/17 09:37> ED Treatment Course - Medications Given in the ED: ED Medications Discontinued Medications Generic Name Dose Route Start Last Admin Trade Name Freq PRN Reason Stop Dose Admin Metoprolol Tartrate 50 mg 07/01/17 09:13 07/01/17 09:25 Lopressor - PO 07/01/17 09:14 50 mg ONCE ONE Administration <Quique Moran - Last Filed: 07/01/17 09:35> Medical Decision Making - Medical Decision Making 07/01/17 09:17 a/p: 62yo male sent from [facility] for eval of afib pt states hx of afib no cp/sob/palpitations afib w rate control at this time. takes metoprolol has not had metoprolol in a few days will dose metoprolol in the ED. call placed to Dr. Hart to return to the patient to [facility] pt requesting to go back to detox 07/01/17 09:[address] hart who accept the patient back to [facility] for detox <Kimmie Nice - Last Filed: 07/01/17 09:37> *DC/Admit/Observation/Transfer - Attestations Scribe Attestion: 07/01/17 09:34 Documentation prepared by Quique Moran, acting as spanish medical interpreter for Kimmie Nice DO, MD/. <Quique Moran - Last Filed: 07/01/17 09:35> - Discharge Dispostion Admit: No - Attestations Physician Attestion: 07/01/17 09:19 I, Dr. Kimmie Nice DO, attest that this document has been prepared under my direction and personally reviewed by me in its entirety. I further attest, that it accurately reflects all work, treatment, procedures and medical decision -making performed by me. <Kimmie Nice - Last Filed: 07/01/17 09:37> Diagnosis at time of Disposition: Atrial fibrillation - Discharge Dispostion Disposition: HOME Condition at time of disposition: Stable - Referrals Referrals: Chepe Patel MD [Staff Physician] - - Patient Instructions Printed Discharge Instructions: DI for Arrhythmias Additional Instructions: Please return to [facility] to continue detox. Please make an appointment to follow up with the implementation coordinator for further eval of your atrial fibrillation.
[2017-07-01] MEDS ORDERED: METOPROLOL TARTRATE 50 MG TABLET (FP) ONE (09:22)
[2017-07-01 09:27] VITALS: BP 115/83; PULSE 86
--- NOTE | 2017-07-01 15:47 | EKG ---
Test Reason : Blood Pressure : / mmHG Vent. Rate : 085 BPM Atrial Rate : 416 BPM P-R Int : 000 ms QRS Dur : 094 ms QT Int : 396 ms P-R-T Axes : 000 019 035 degrees QTc Int : 471 ms ATRIAL FIBRILLATION ABNORMAL ECG WHEN COMPARED WITH ECG OF 01-JUL-2017 06:35, NO SIGNIFICANT CHANGE WAS FOUND Confirmed by ALINA SINHA MD ([id number]) on 07/01/2017 3:47:20 PM Referred By: Confirmed By:ALINA SINHA MD
== END 2017-07-01 10:30 | disposition home or self-care (01) ==
LOC: JER 08:38
DX: I48.91 Unspecified atrial fibrillation (principal); I10 Essential (primary) hypertension; B19.20 Unspecified viral hepatitis C without hepatic coma; Z87.891 Personal history of nicotine dependence; F10.20 Alcohol dependence, uncomplicated
CPT/HCPCS: 93005; 93010; 99283-25